=== PATIENT | female | born 2005 | race Caucasian/White ===

== ENCOUNTER 2024-07-13 19:48 | Emergency (ER) | payer BC, SELFPAY ==
[2024-07-13 19:55] VITALS: BP 122/74; PULSE 90; RESP 16; TEMP 38.2; O2SAT 96
[2024-07-13 20:02] VITALS: BP 116/76; PULSE 104; RESP 16; TEMP 38.2; O2SAT 96; BMI 20.8
--- NOTE | 2024-07-13 20:32 | CRLHL7_ITS ---
For Patients: As a result of the Cures Act, medical imaging exams and procedure reports are released immediately into your electronic medical record. You may view this report before your referring provider. If you have questions, please contact your health care provider. INDICATION: Fever TECHNIQUE: Chest 2 views. COMPARISON: None. FINDINGS: Cardiovascular and mediastinum: Heart size is normal. Unremarkable mediastinum. Lungs and pleural spaces: Lungs are clear. No sign of infiltrate or mass. No sign of pleural effusion. No pneumothorax. Bones and soft tissues: No significant findings. IMPRESSION: No acute cardiopulmonary process. Dictated by Artie Dhillon MD @ 07/13/2024 8:54:15 PM (Electronically Signed)
--- NOTE | 2024-07-13 20:50 | ED.FEVER ---
HPI - Fever General Time Seen by Provider: 20:50 Date Seen: 07/13/24 Chief Complaint: Fever Stated Complaint: Fever Time Seen by Provider: 07/13/24 20:50 Source: patient, RN notes reviewed and old records reviewed Mode of arrival: ambulatory Limitations: no limitations History of Present Illness HPI Narrative: 19 y/o female who presents today with fever. Related Data Home Medications ?Medication ?Instructions ?Recorded ?Confirmed No Known Home Medications 07/13/24 07/13/24 Allergies Allergy/AdvReac Type Severity Reaction Status Date / Time No Known Drug Allergies Allergy Verified 07/13/24 20:05 [facility] Medical History (Updated 07/13/24 @ 21:56 by Paul Lehman MD) No significant past medical history Surgical History (Updated 07/13/24 @ 20:57 by Giles Vasquez RN) No significant past surgical history Social History Smoking Status: Never smoker Second hand tobacco smoke exposure: No How often do you have a drink containing alcohol: never AUDIT-C Alcohol total score: 0 Non-prescribed substance use: denies use Exam Const Vital Signs, click to edit/add: Vital Signs - 24 hr 07/13/24 19:55 07/13/24 20:02 07/13/24 21:46 Temperature 100.8 F H 100.8 F H 100.8 F H Pulse Rate [Pulse Oximeter] 104 H Pulse Rate [Right Pulse Oximeter] 90 Respiratory Rate 16 16 Blood Pressure [Left Arm] 122/74 Blood Pressure [Right Upper Arm] 116/76 Pulse Oximetry 96 96 Oxygen Delivery Method Room Air Room Air Course Course ED Course: reviewed most recent primary care visit from February 2024 which was a routine physical with no specific concerns, patient on oral contraceptives. Chest xray independently interpreted by me negative for acute findings. Patient reports two days of fever. Mild headache, no throat pain, no runny nose or cough, no nausea or vomiting, no abdominal pain or urinary symptoms. On exam, patient is febrile but otherwise stable. No abdominal tenderness, no oropharyngeal erythema, no rash, no wheezes or crackles, no rash, no nuchal rigidity. Labs ordered along with Tylenol. Patient has been taking ibuprofen 200mg for fever, we discussed that this is subtherapeutic dosing and may be contributing to why her fever persists. Reevaluation(s) Time of Reevaluation #1: 21:53 Reevaluation #1: Labs independently interpreted by me with leukopenia, mild thrombocytopenia, normal BMP. This is most consistent with viral process, respiratory swabs negative. Continue symptom treatment, follow-up with PCP in 1 week if nto better. Vital Signs Vital signs: Initial Vital Signs Temperature 100.8 F H 07/13/24 19:55 Temperature Source Temporal Artery Scan 07/13/24 19:55 Pulse Rate 90 07/13/24 19:55 Respiratory Rate 16 07/13/24 19:55 Respiratory Effort Normal, Spontaneous, Non-Labored 07/13/24 19:55 Respiratory Depth Normal 07/13/24 19:55 Blood Pressure 122/74 07/13/24 19:55 Blood Pressure Mean 90 07/13/24 19:55 Blood Pressure Position Sitting 07/13/24 19:55 Pulse Oximetry 96 07/13/24 19:55 Oxygen Delivery Method Room Air 07/13/24 19:55 Sepsis Recent Fever Within 48 Hours Yes 07/13/24 19:55 Sepsis New/Unexplained Change in Mental Status No 07/13/24 19:55 Sepsis Action Taken by Nursing No Action Required 07/13/24 19:55 Vital Signs Temperature 100.8 F H 07/13/24 19:55 Pulse Rate 90 07/13/24 19:55 Respiratory Rate 16 07/13/24 19:55 Blood Pressure 122/74 07/13/24 19:55 Pulse Oximetry 96 07/13/24 19:55 Oxygen Delivery Method Room Air 07/13/24 19:55 Temperature 100.8 F H 07/13/24 21:46 Pulse Rate 104 H 07/13/24 20:02 Respiratory Rate 16 07/13/24 20:02 Blood Pressure 116/76 07/13/24 20:02 Pulse Oximetry 96 07/13/24 20:02 Oxygen Delivery Method Room Air 07/13/24 20:02 Medications Administered Medications: Generic Name Dose Route Start Last Admin Trade Name Freq PRN Reason Stop Dose Admin Acetaminophen 1,000 mg 07/13/24 21:43 07/13/24 21:46 Acetaminophen 500 Mg Tablet PO 07/13/24 21:44 1,000 mg ONCE ONE Administration MDM - Fever Lab Data Labs: Lab Results 07/13/24 07/13/24 Range/Units 19:55 21:15 WBC 2.92 L (4.50-11.00) K/uL RBC 4.73 (4.00-5.20) m/uL Hgb 12.4 (12.0-16.0) gm/dL Hct 39.7 (33.0-51.0) % MCV 84 (80-100) fL MCH 26 (26-34) pg MCHC 31 L (32-36) gm/dL RDW Coeff of Lj 15.0 (11.5-15.5) % Plt Count 131 L (140-440) K/uL Neut % (Auto) 78.2 H (42.0-72.0) % Lymph % (Auto) 11.6 L (20-44) % [place] % (Auto) 9.9 (0.0-11.0) % Eos % (Auto) 0.0 (0.0-7.0) % Baso % (Auto) 0.3 (0.0-3.0) % Neut # (Auto) 2.30 (1.7-7.0) K/uL Lymph # (Auto) 0.30 L (0.90-2.90) K/uL [place] # (Auto) 0.30 (0.00-0.90) K/UL Eos # (Auto) 0.00 (0.00-0.50) K/uL Baso # (Auto) 0.00 (0.00-0.30) K/uL Abs Immat Gran (auto) 0.00 (0.00-0.30) K/uL Imm/Tot Granulo (auto) 0.0 % Sodium 137 (135-149) mmol/L Potassium 3.6 (3.6-5.1) mmol/L Chloride 103 (96-114) mmol/L Carbon Dioxide 20 (20-32) mmol/L Anion Gap 14 (7-15) mEq/L BUN 11 (5-24) mg/dL Creatinine 0.8 (0.5-1.5) mg/dL Estimated Creat Clear 115.50 Estimated GFR 107 ml/min Glucose 92 (60-115) mg/dL Calcium 9.5 (8.4-10.6) mg/dL SARS-CoV-2 (PCR) Negative SARS-CoV-2 (Negative) Influenza Type A (PCR) Negative PCR FLU A (Negative) Influenza Type B (PCR) Negative PCR FLU B (Negative) RSV (PCR) Negative PCR RSV (Negative) Discharge Plan Discharge Clinical Impression: Fever in adult Patient Disposition: Home, Self-Care Condition: Stable Instructions: Fever in Adults (ED) Additional Instructions: Take Tylenol 1000mg and ibuprofen 600mg as needed for fever Lots of fluids and rest Follow-up with primary care in 1 week if not improved Activity Level: Activity as Tolerated Discharge Diet: Regular Prescriptions: No Action No Known Home Medications Stand Alone Forms: MyHealth Info Instructions
[2024-07-13 21:05] LABS: PCR FLU A Negative PCR FLU A (Negative); PCR FLU B Negative PCR FLU B (Negative); PCR RSV Negative PCR RSV (Negative); SARS PCR* Negative SARS-CoV-2 (Negative)
[2024-07-13 21:30] LABS: Basophils Percent Auto 0.3 % (0.0-3.0); Hematocrit* 39.7 % (33.0-51.0); Hemoglobin* 12.4 gm/dL (12.0-16.0); Lymphocytes Percent Auto 11.6 % (20-44); Mean Corpuscular HGB Conc 31 gm/dL (32-36); Mean Corpuscular Hemoglobin 26 pg (26-34); Mean Corpuscular Volume 84 fL (80-100); Monocytes Percent Auto 9.9 % (0.0-11.0); Neutrophils Percent Auto 78.2 % (42.0-72.0); Platelet Count* 131 K/uL (140-440); Red Blood Count* 4.73 m/uL (4.00-5.20); White Blood Count* 2.92 K/uL (4.50-11.00)
[2024-07-13 21:35] LABS: Slide Review Reflex No
[2024-07-13 21:45] LABS: Chloride* 103 mmol/L (96-114)
[2024-07-13 21:46] VITALS: TEMP 38.2
[2024-07-13 21:46] LABS: Potassium* 3.6 mmol/L (3.6-5.1); Sodium* 137 mmol/L (135-149)
[2024-07-13] MEDS: ACETAMINOPHEN 500 MG TABLET 1000 MG PO (21:46)
[2024-07-13 21:48] LABS: Blood Urea Nitrogen* 11 mg/dL (5-24); Creatinine* 0.8 mg/dL (0.5-1.5); Estimated Glomerular Filt Rate 107 ml/min
[2024-07-13 21:49] LABS: Anion Gap 14 mEq/L (7-15); Calcium* 9.5 mg/dL (8.4-10.6); Carbon Dioxide* 20 mmol/L (20-32); Glucose* 92 mg/dL (60-115)
[2024-07-13 22:03] VITALS: BP 112/74; PULSE 90; RESP 16; TEMP 37.6; O2SAT 96
--- OUTSIDE RECORDS SUMMARY | 2024-07-13 22:10 | XMS_ITS | Encounter Summary ---
Author Organization [facility] [facility] Address [address] [place] [address] Care Team Providers Care Integration Technician Name Role Phone Aden Gaxiola MD Primary Care Provider [phone] Marlee Dsouza ELECTRIC MOTOR MECHANIC, PMHNP- Unavailable Unav ailable Annetta Loyola DNP,ELECTRIC MOTOR MECHANIC,CRISIS INTERVENTION COUNSELOR Primary Care Prov ider Encounter Details Date Type Department Care Team (Late st Contact Info) Description 03/30/2017 Historical Conversion [facility] [address], [place] [address] Franchesca Cherry, CNM,CRISIS INTERVENTION COUNSELOR [address] [place] [address] Social History Tobacco Use Types Packs/Day Years Used Date Smoking Tobacco: Never Assessed Comments Unknown Sex and Gender Information Value Date Recorded Sex Assigned at Not on file Legal Sex Female 9:01 AM CDT Gender Identity Not on file Sexual Orientation Not on file documented as of this encounter Last Filed Vital Signs Vital Sign Reading Time Taken Comments Blood Pressure 98/62 03/30/2017 4:43 PM SITE SAFETY COORDINATOR Pulse - - Temperature - - Respiratory Rate - - Oxygen Saturation - - Inhaled Oxygen Concentration - - Weight 56.2 kg (123 lb 14.4 oz) 03/30/2017 4:43 PM SITE SAFETY COORDINATOR Height - - Body Mass Index - - documented in this encounter Plan of Treatment Not on file documented as of this encounter Visit Diagnoses Not on filedocumented in this encounter Additional Health Concerns Infection Onset Date Last Indicated Resolved Time COVID-19 Rule Out 12/13/2019 12/13/2019 12/13/2019 9:16 AM CDT COVID-19 Rule Out 04/08/2020 04/08/2020 04/08/2020 1:39 PM SITE SAFETY COORDINATOR documented as of this encounter Care Teams Integration Technician Relationship Specialty Start Date End Date Aden Gaxiola MD [address] [place] [address] [phone] PCP - General Family Medicine 05/27/18 07/31/22 Annetta Loyola DNP,ELECTRIC MOTOR MECHANIC,CRISIS INTERVENTION COUNSELOR [address] [place] [address] [phone] PCP - General Nurse Practitioner 08/01/22 Marlee Dsouza APRN, PMHNP-BC [address] [place] [phone] Psychiatric Provider KNOWLEDGE ARCHITECT [facility] 12/07/20 3 documented as of this encounter Additional Source Comments PLEASE NOTE: Replies to this message will not be received.[facility]
--- OUTSIDE RECORDS SUMMARY | 2024-07-13 22:10 | XMS_ITS | Encounter Summary ---
Author Organization [employer] [facility] Address [address] [place] [address] Care Team Providers Care Electrical Mechanic Name Role Phone Aden Gaxiola MD Primary Care Provider [phone]- [phone] Marlee Dsouza WOOD SCRAP HANDLER, PMHNP-BC Unavailable Unav ailable Annetta Loyola DNP,WOOD SCRAP HANDLER,WEAVER HAND Primary Care Prov ider Encounter Details Date Type Department Care Team (Late st Contact Info) Description 09/15/2016 Historical Conversion [facility] [address] [address] Annetta Loyola, MAK,WOOD SCRAP HANDLER,WEAVER HAND [address] [phone] Social History Tobacco Use Types Packs/Day Years Used Date Smoking Tobacco: Never Assessed Comments Unknown Sex and Gender Information Value Date Recorded Sex Assigned at Not on file Legal Sex Female 9:01 AM CDT Gender Identity Not on file Sexual Orientation Not on file documented as of this encounter Miscellaneous Notes * Physical Therapy Note - [facility], Genericprovider - 09/15/2016 12:00 AM CDT PHYSICAL THERAPY DISCHARGE SUMMARY PATIENT: JESUS GAXIOLA : 2005 MR #: [id number] TODAY S DATE: 09/15/16 AGE: 11 REFERRAL SOURCE: Ha Loyola, DNP, WOOD SCRAP HANDLER, WEAVER HAND, [place] DIAGNOSIS: Right knee pain ICD-10 CODE: Not tracked ONSET DATE: 06/03/16 SUBJECTIVE REPORT: Jesus is a 11-year-old female who has been seen for a total of 3 visits between the dates of 08/23/16 through 09/15/16. The patient was referred due to right knee pain. This therapist found her to have signs and symptoms consistent with flexibility deficits as well as impaired body mechanics and medial knee deviation contributing to her knee symptoms. We set forth on a plan of care to increase her knowledge and awareness of her body mechanics and the importance of correcting that through muscle activation with her various recreational activities that she likes to participate in, in cluding basketball, cross-country, track, and higher level summer training activities. At the patient's second attended session, she was having improvement in her symptoms but still some occasional s ymptoms with high level aggressive lifting activities at the local high school. The patient practiced various body mechanics with this therapist on that date and it became evident that we needed diff erent equipment to practice to the fullest capacity to identify Jesus's body mechanics, therefore we spent today's session at the local [employer]. The patient and her mother met this therapist th ere to practice body mechanics with olympic-like lifts. The patient's subjective report today includes she was able to participate in a 4-day running camp without symptoms. She has also been able to participate in lengthy [employer] cross-training activities as well as basketball practices without symptoms. The only activity that causes her occasional symptoms at this time is the jammer lifting exercise at the local high school. The patient feels she is having these symptoms because she has to quickly extend her knee. Otherwise, she has not had to use her base and feels very confid ent about the level of her symptoms at this time. Patient also arrived today wearing new Pegasus tennis shoes that she reports feel like good shoes for her to use in the upcoming school year. OBJECTIVE: Today, after a brief warm-up with Jesus on an exercise bike, we practiced Olympic lift hang clean. We started first with practicing high poles and power ups with use of the bar, practicing the upper trap muscle activation as well as keeping the bar close to the body and letting go. We also practicing the quick and powerful explosion through the lower extremities and practiced body mechanics, as eJsus does have a tendency toward a posterior pelvic tilt and loss of heel contact with the floor. Following this, we did practice the entire full lift of the hang clean. During this time, we practiced keeping the bar close to the body, high elbow pull, upper trap muscle activation, and snatching under quickly. The greatest deficit that Jesus demonstrated was lack of speed with the movement. We also practiced hand positioning with shoulders elevated to 90 and elbows extended out from body and letting go with her hands to assume a more appropriate postur e through her torso and upper extremities. Jesus did quite well with practicing these exercises today and I strongly encouraged her to keep an eye on those different components of the exercise going forward into the future to help her continue to solidify her form with this very aggressive and demanding exercise. We also practiced the jammer exercise again and I gave Jesus additional cues to e nsure that she's monitoring her medial knee deviation on the right. Finally, we did practice some single-leg lunges as well as side planks as Jesus continues to have deficit at the right hip abducto r muscles as compared to the left. She will work on these to assist with improving that strength deficit. ASSESSMENT: The patient is a 11-year-old female who has been seen for a total of 3 visits for right knee pain. It appears that Jesus's right knee pain is largely associated with medial knee deviation that likely will continue to be fairly chronic for her. It will be important for Jesus to monitor and handle this going forward into the future if she wants to continue her high level participation in school and recreational activities, and she does appear to be managing well at this point in time. She did benefit from the skilled services that were provide d to her, largely including patient education and body mechanics management, all of which were largely implemented with the recreational therapeutic exercise activity that she is participating in at t he local high school. GOALS: 1. The patient will have a Lower Extremity Functional Scale of >/= 76/80 to demonstrate lesser pain and greater tolerance to high level recreational activities, back to prior level of function. Current Status : Goal not met, as I did not reassess this functional scale on today's date. 2. The patient will have bilateral prone two-joint hip flexors symmetrical in nature in regard to flexibility to demonstrate lesser muscular tightness in right side quadriceps and lesser kne e joint irritation due to muscle tightness. Current Status : Goal met, as this was reassessed at her second attended session. 3. Patient will subjectively report ability to implement and observe body mechanics awareness as well as neuromuscular control, specifically on right side body mechanics with high level recreational activities to allow for participation in school sports and home recreational activities in a pain free manner. Current Status : Goal met. 4. Patient will subjectively report pain at right knee of </= 2/10 7/7 days per week with all levels of participation in activities to demonstrate improved incorporation of conservative management strategies for right knee pain. Current Status : Goal partially met. Jesus did report that she does not have pain currently and did not have pain with some of the regular activities that were causing her discomfort, though she does occasionally have pain with one lifting activity at school. PLAN: At this point in time, Jesus and her mom feel confident about her capabilities to go forward independently and feel comfortable with discharge to independence with her home exe rcise program. They were strongly encouraged to continue with the recommendations that were provided by this therapist and to contact this rehab facility if any further services are needed or desired in the future. Patient will now be discharged from this episode of care. Thank you for this referral. KARY LOVE DPT <Electronically signed by KARY Giang DPT DACLEMENTE> 09/25/16 1509 Dictated but not read 1101 1023/LESLEE documented in this encounter Plan of Treatment Not on file documented as of this encounter Visit Diagnoses Not on filedocumented in this encounter Additional Health Concerns Infection Onset Date Last Indicated Resolved Time COVID-19 Rule Out 12/13/2019 12/13/2019 12/13/2019 9:16 AM CDT COVID-19 Rule Out 04/08/2020 04/08/2020 04/08/2020 1:39 PM MEAL ROOM HAND documented as of this encounter Care Teams Electrical Mechanic Relationship Specialty Start Date End Date Aden Gaxiola MD [address] [place] [phone] PCP - General Family Medicine 05/27/18 07/31/22 Annetta Loyola, MAK,WOOD SCRAP HANDLER,WEAVER HAND [address] [phone] PCP - General Nurse Practitioner 08/01/22 Marlee Dsouza APRN, PMHNP- [address] [place] [phone] Psychiatric Provider WEBSITE ADMIN [facility] 12/07/20 3 documented as of this encounter Additional Source Comments PLEASE NOTE: Replies to this message will not be received.[facility]
--- OUTSIDE RECORDS SUMMARY | 2024-07-13 22:10 | XMS_ITS | Encounter Summary ---
Author Organization [facility] Address [address] [place] [address] Care Team Providers Care Branch Coordinator Name Role Phone Aden Gaxiola MD Primary Care Provider +1- [phone] Marlee Dsouza PROFESSOR OF FRENCH, PMHNP-BC Unavailable Unav ailable Annetta Loyola DNP,PROFESSOR OF FRENCH,AGENCY DEVELOPMENT MANAGER Primary Care Prov ider Encounter Details Date Type Department Care Team (Late st Contact Info) Description 08/23/2016 Historical Conversion [facility] [address] [address] Annetta Loyola, MAK,PROFESSOR OF FRENCH,AGENCY DEVELOPMENT MANAGER [address] [phone] Social History Tobacco Use Types Packs/Day Years Used Date Smoking Tobacco: Never Assessed Comments Unknown Sex and Gender Information Value Date Recorded Sex Assigned at Not on file Legal Sex Female 9:01 AM CDT Gender Identity Not on file Sexual Orientation Not on file documented as of this encounter Miscellaneous Notes * Physical Therapy Note - [facility], Genericprovider - 08/23/2016 12:00 AM CDT PHYSICAL THERAPY INITIAL EVALUATION PATIENT: JESUS GAXIOLA : 2005 MR #: [id number] TODAY S DATE: 08/23/16 AGE: 11 REFERRAL SOURCE: Ha Loyola, DNP, PROFESSOR OF FRENCH, AGENCY DEVELOPMENT MANAGER, N[place]O DIAGNOSIS: Right knee pain ICD-10 CODE: Not tracked ONSET DATE: 06/03/16 SUBJECTIVE REPORT: Jesus is a very pleasant 11-year-old female who is well known to this therapist from out in the community. She comes today with the support of her mother, Jacque. The patient reports t hat when she was participating in hurdling events during track season she started having right knee pain, and she landed on her right foot as she was going over the hurdles. She subsequently stopped participating in the hurdles, but her knee pain has persisted. It is very intermittent in nature but is present with certain activities, especially with stopping and starting quickly such as with [employer] run today, which she is participating in with the local [employer] fitness program. Also, there are some activities that she does in her home setting that she is unable to put a complete identifier on in regard to what provokes her symptoms, but she feels that it's only occasional certain movements and postures that cause the right knee pain. It does resolve rather quickly, but it is certainly present occasionally. She does also feel like there is a pop, but there is no audible sound. She denies any sort of incident or trauma contributing to the onset of the symptoms. The pain that is present is located on the right side at the medial knee at approximately the superior medial border of the patella and onto the knee joint line. The patient rates the pain at a lev el 5 to 6 out of 10 when it is present, but again it is not constant in nature. The patient is able to engage in her running activities such as on the treadmill. She is able to tolerate 2 miles of c ontinuous running at 8.3 miles per hour and 0% elevation with 0/10 knee pain. She has used some ice and also occasionally uses a knee brace after activity, which does provide her with relief. Otherw ise, home activities are not provocative in nature and she is not limited in home activities. She is continuing to participate in recreational activities this summer, but would like to have the knee pain investigated. She does wear Nike Pegasus shoes for running during cross country and track. Now, with [employer] activities in the summer, she is using Nike Zoom Free shoes. Her past medical history is largely unremarkable. For further details on her history, please access her EMR. OBJECTIVE: OBSERVATION - Jesus is a very pleasant young female who is extremely tall in stature and has a very long hip to floor length. Her legs are very thin and she has good muscle tone but thin in nature. She ambulates without apparent antalgia. FUNCTIONAL SCALE - Patient completes the Lower Extremity Functional Scale, scoring herself at 72/80. Higher scores indicate lesser disability. 3 LE PROM Left Right Straight leg raise 70 , negative 80 , negative Hip flexion 120 120 90/90 hamstring flexibility -25 -35 Hip external rotation >45 45 Hip internal rotation 25 25 Prone one-joint hip flexor 20 15 Prone two-joint hip flexor 110 100 Gluteals 30 45 Gastrocnemius 3 3 Soleus 0 2 MANUAL MUSCLE TESTING - Bilateral lower extremity hip flexion, knee flexion and extension, ankle dorsiflexion, and great toe extension are 5/5 muscle strength and pain fr ee. NEUROLOGICAL SCREENING - The patient denies any sort of numbness or tingling into her lower extremities. Lower extremity dermatomes are intact to light touch. Lower extremity myotomes are stron g and pain free. FURTHER OBJECTIVE MEASURES, OBSERVATIONS, AND SPECIAL TESTS - Patient has negative knee screening for bilateral meniscus deficiency as well as ACL and PCL screening. The patient a lso has negative screening for patellar mobilizations that are provocative of pain. The patient is positive to palpation at the superior medial border of the patella on the right as compared to nonte nder on the left. She is also tender at the medial hamstring on the right. Therapist appreciates a moderate to severe increase in soft tissue tension in this location as well. Patient does have imp aired balance on the right side as compared to the left. She is able to maintain her balance x 10 seconds without significant limitation, but there is increased instability and postural sway on the r ight as compared to the left, and patient feels lesser balanced on the right as compared to the left. In regard to body mechanics with squat, patient does demonstrate good body mechanics but she does tend to laterally deviate the lower extremity on the right as compared to the left and medial knee deviation is observed as she progresses with repetitions as well as increased foot pronation on the right as compared to the left. Patient does have a positive piriformis test on the right for muscle tightness. ASSESSMENT: The patient is a 11-year-old female who has signs and symptoms consistent with very likely impaired neuromuscular control at the knee joint. It is very possible that with these very high level quick changes of activities or unilateral landing activities that the neuromuscular control that is very much needed at that point in time is deficient ivelisse Laws. This would not be unreasonable, given the fact that she is quite tall in stature and her muscular tone is a little bit lower now just given her age and physique. She is certainly heading in the right direction in regard to her participation in fitness activities, especially this summer with strength training activities. I think Jesus will benefit from skilled services to increase he r knowledge and awareness in regard to neuromuscular control, specifically at the right knee and to lessen the medial knee deviation that is apparent with some of her body mechanics that are demonstra nubia today. Further, she will have to implement this independently with other high level quick activities. Jesus will benefit from recommendations in regard to the soft tissues that were identified as limited today including hamstrings, piriformis, and quadriceps and also muscular strengthening, specifically at the VMO on the right as well as hip abductors bilaterally. The patient and her mom a re made fully aware of today's objective findings and recommendations of this therapist and agreeable to the current plan. TODAY'S TREATMENT - On today's date, I did spend a lengthy amount of time visiting with Jesus and her mom in regard to the nature of the anatomical considerations of the low er extremities, the musculature that will assist with supporting the knee and controlling it, especially with quick like cutting activities. I advised Jesus on the importance of stability throughout the hip joint and body mechanics with regard to monitoring that that she can implement with her participation in the local [employer] summer activities. She will also be working on home exercise progr am recommendations including stretching of hamstrings, piriformis, and quadriceps. We practiced each of these together today as well as worked on VMO activation with her squats, body mechanics with h er squats, and hip abductor muscle strength. The patient and her mom were also advised on recommendations in regard to shoe wear and will plan on investigating that going forward. She was given a benitez ndout to work on these recommendations over the next couple weeks. GOALS: (to be met in 6 weeks) 1. The patient will have a Lower Extremity Functional Scale of >/= 76/80 to demonstrate lesser pain and greater tolerance to high level recreational activities, back to pr ior level of function. 2. The patient will have bilateral prone two-joint hip flexors symmetrical in nature in regard to flexibility to demonstrate lesser muscular tightness in right side quadriceps and lesser knee joint irritation due to muscle tightness. 3. Patient will subjectively report ability to implement and observe body mechanics awareness as well as neuromuscular control, specifically on right side body mechanics with high level recreational activities to allow for participation in school sports and home recreational activities in a pain free manner. 4. Patient will subjectively report pain at right knee of </= 2/10 7/7 days per week with all levels of participation in activities to demonstrate improved incorporation of conservative management strategies for right knee pain. PLAN: I will plan to see Jesus within a 2-week time period and follow up as needed with regard to her symptoms. The patient will benefit from skilled services to include patient education, behavior modification strategies in regard to body mechanics and incorporation of neuromuscular control with recreational fitness activities, progressive therapeutic exercise and ac tivity, and manual therapy and modalities, if needed. Thank you for this referral. KARY LOVE DPT <Electronically signed by KARY LOVE> 08/24/16 1643 Dictated but not read 1645 [id number] Electronically signed by Annetta Loyola, MAK,PROFESSOR OF FRENCH,AGENCY DEVELOPMENT MANAGER at 12/02/2018 4:55 PM CDT documented in this encounter Plan of Treatment Not on file documented as of this encounter Visit Diagnoses Not on filedocumented in this encounter Additional Health Concerns Infection Onset Date Last Indicated Resolved Time COVID-19 Rule Out 12/13/2019 12/13/2019 12/13/2019 9:16 AM CDT COVID-19 Rule Out 04/08/2020 04/08/2020 04/08/2020 1:39 PM MULTIPLE LAUNCH ROCKET SYSTEM CREWMEMBER documented as of this encounter Care Teams Branch Coordinator Relationship Specialty Start Date End Date Aden Gaxiola MD [address] [place] [phone] PCP - General Family Medicine 05/27/18 07/31/22 Annetta Loyola, MAK,PROFESSOR OF FRENCH,AGENCY DEVELOPMENT MANAGER [address] [phone] PCP - General Nurse Practitioner 08/01/22 Marlee Dsouza APRN, PMHNP- [address] [phone] Psychiatric Provider STRUCTURES ENGINEER Psych-Mental [facility] 12/07/20 3 documented as of this encounter Additional Source Comments PLEASE NOTE: Replies to this message will not be received.[facility] and [facility]
--- OUTSIDE RECORDS SUMMARY | 2024-07-13 22:10 | XMS_ITS | Encounter Summary ---
Author Organization [facility] Address [address] [place] [address] Care Team Providers Care Extrusion Process Operator Name Role Phone Aden Gaxiola MD Primary Care Provider [phone]- [phone] Marlee Dsouza CENTRAL CONTROL ROOM OPERATOR, PMHNP-BC Unavailable Unav ailable Annetta Loyola DNP,CENTRAL CONTROL ROOM OPERATOR,TRANSITIONAL STUDIES INSTRUCTOR Primary Care Prov ider Encounter Details Date Type Department Care Team (Late st Contact Info) Description 12/23/2015 Historical Conversion [facility] [address], [place] [address] Chantal Patricio MD Social History Tobacco Use Types Packs/Day Years Used Date Smoking Tobacco: Never Assessed Comments Unknown Sex and Gender Information Value Date Recorded Sex Assigned at Not on file Legal Sex Female 9:01 AM CDT Gender Identity Not on file Sexual Orientation Not on file documented as of this encounter Last Filed Vital Signs Vital Sign Reading Time Taken Comments Blood Pressure - - Pulse - - Temperature - - Respiratory Rate - - Oxygen Saturation - - Inhaled Oxygen Concentration - - Weight 49.9 kg (110 lb) 12/23/2015 10:58 AM CDT Height - - Body Mass Index - - documented in this encounter Plan of Treatment Not on file documented as of this encounter Visit Diagnoses Not on filedocumented in this encounter Additional Health Concerns Infection Onset Date Last Indicated Resolved Time COVID-19 Rule Out 12/13/2019 12/13/2019 12/13/2019 9:16 AM CDT COVID-19 Rule Out 04/08/2020 04/08/2020 04/08/2020 1:39 PM SUPPLY CHAIN COORDINATOR documented as of this encounter Care Teams Extrusion Process Operator Relationship Specialty Start Date End Date Aden Gaxiola MD [address] [place] [phone] PCP - General Family Medicine 05/27/18 07/31/22 Annetta Loyola, DNP,CENTRAL CONTROL ROOM OPERATOR,TRANSITIONAL STUDIES INSTRUCTOR [address] [place] [phone] PCP - General Nurse Practitioner 08/01/22 Marlee Dsouza, SHELLY, PMHNP-BC [address] [place] [phone] Psychiatric Provider FREE LANCE ARTIST Psych-Mental [facility] 12/07/20 3 documented as of this encounter Additional Source Comments PLEASE NOTE: Replies to this message will not be received.[facility] and [facility]
--- OUTSIDE RECORDS SUMMARY | 2024-07-13 22:10 | XMS_ITS | Encounter Summary ---
Author Organization [facility] Address [address] [place] [address] Care Team Providers Care Violent Crimes Detective Name Role Phone Aden Gaxiola MD Primary Care Provider [phone]- [phone] Marlee Dsouza INFORMATICS CONSULTANT, PMHNP-BC Unavailable Unav ailable Annetta Loyola DNP,INFORMATICS CONSULTANT,DELIVERY LEAD Primary Care Prov ider Encounter Details Date Type Department Care Team (Late st Contact Info) Description 08/14/2016 Historical Conversion [facility] [address] [phone] Annetta Loyola, DNP,INFORMATICS CONSULTANT,DELIVERY LEAD [address] [phone] Social History Tobacco Use Types Packs/Day Years Used Date Smoking Tobacco: Never Assessed Comments Unknown Sex and Gender Information Value Date Recorded Sex Assigned at Not on file Legal Sex Female 9:01 AM CDT Gender Identity Not on file Sexual Orientation Not on file documented as of this encounter Last Filed Vital Signs Vital Sign Reading Time Taken Comments Blood Pressure 90/62 08/14/2016 9:21 AM CDT Pulse - - Temperature - - Respiratory Rate - - Oxygen Saturation - - Inhaled Oxygen Concentration - - Weight 53.4 kg (117 lb 11.6 oz) 08/14/2016 9:21 AM CDT Height - - Body Mass Index - - documented in this encounter Plan of Treatment Not on file documented as of this encounter Visit Diagnoses Not on filedocumented in this encounter Additional Health Concerns Infection Onset Date Last Indicated Resolved Time COVID-19 Rule Out 12/13/2019 12/13/2019 12/13/2019 9:16 AM CDT COVID-19 Rule Out 04/08/2020 04/08/2020 04/08/2020 1:39 PM DIESEL TECHNICIAN documented as of this encounter Care Teams Violent Crimes Detective Relationship Specialty Start Date End Date Aden Gaxiola MD [address] [place] [phone] PCP - General Family Medicine 05/27/18 07/31/22 Annetta Loyola, MAK,INFORMATICS CONSULTANT,DELIVERY LEAD [address] [place] [phone] PCP - General Nurse Practitioner 08/01/22 Marlee Dsouza, INFORMATICS CONSULTANT, PMHNP-BC [address] [place] [phone] Psychiatric Provider EXIT BOOTH AGENT Psych-Mental th 12/07/20 3 documented as of this encounter Additional Source Comments PLEASE NOTE: Replies to this message will not be received.[facility] and [facility]
--- OUTSIDE RECORDS SUMMARY | 2024-07-13 22:10 | XMS_ITS | Encounter Summary ---
Author Organization [email or web address] Address [address] [place] [address] Care Team Providers Care Fitness Manager Name Role Phone Aden Gaxiola MD Primary Care Provider [phone]- [phone] Marlee Dsouza GAME OPERATOR, PMHNP-BC Unavailable Unav ailable Annetta Loyola DNP,GAME OPERATOR,ENGINEER STEAM Primary Care Prov ider Encounter Details Date Type Department Care Team (Late st Contact Info) Description 09/14/2015 Historical Conversion [facility] [address] [phone] Annetta Loyola, DNP,GAME OPERATOR,ENGINEER STEAM [address] [phone] Social History Tobacco Use Types Packs/Day Years Used Date Smoking Tobacco: Never Assessed Comments Unknown Sex and Gender Information Value Date Recorded Sex Assigned at Not on file Legal Sex Female 9:01 AM CDT Gender Identity Not on file Sexual Orientation Not on file documented as of this encounter Last Filed Vital Signs Vital Sign Reading Time Taken Comments Blood Pressure 90/62 09/14/2015 8:38 AM CDT Pulse - - Temperature - - Respiratory Rate - - Oxygen Saturation - - Inhaled Oxygen Concentration - - Weight 47.6 kg (104 lb 15 oz) 09/14/2015 8:38 AM CDT Height 170.2 cm (5' 7) 09/14/2015 8:38 AM CDT Body Mass Index 16.44 09/14/2015 8:38 AM CDT Body Mass Index Percentile 18.82% 09/14/2015 8:3 8 AM CDT Growth Chart: [facility] [place] (Girls, 2- 20 Years) documented in this encounter Plan of Treatment Not on file documented as of this encounter Visit Diagnoses Not on filedocumented in this encounter Additional Health Concerns Infection Onset Date Last Indicated Resolved Time COVID-19 Rule Out 12/13/2019 12/13/2019 12/13/2019 9:16 AM CDT COVID-19 Rule Out 04/08/2020 04/08/2020 04/08/2020 1:39 PM SURVEY SUPERINTENDENT documented as of this encounter Care Teams Fitness Manager Relationship Specialty Start Date End Date Aden Gaxiola MD [address] [place] [phone] PCP - General Family Medicine 05/27/18 07/31/22 Annetta Loyola, DNP,GAME OPERATOR,ENGINEER STEAM [address] [place] [phone] PCP - General Nurse Practitioner 08/01/22 Marlee Dsouza, SHELLY, PMHNP-BC [address] [place] [phone] Psychiatric Provider SILVICULTURE FORESTER [facility] 12/07/20 3 documented as of this encounter Additional Source Comments PLEASE NOTE: Replies to this message will not be received.[facility]
--- OUTSIDE RECORDS SUMMARY | 2024-07-13 22:10 | XMS_ITS | Encounter Summary ---
Author Organization [facility] Address [address] [place] [address] Care Team Providers Care Oil Field Equipment Mechanic Supervisor Name Role Phone Aden Gaxiola MD Primary Care Provider [phone]- [phone] Marlee Dsouza BINDING CUTTER, PMHNP-BC Unavailable Unav ailable Annetta Loyola DNP,BINDING CUTTER,REFERENCE LIBRARY ASSISTANT Primary Care Prov ider Encounter Details Date Type Department Care Team (Late st Contact Info) Description 11/23/2016 Historical Conversion [facility] [address] [phone] Annetta Loyola, DNP,BINDING CUTTER,REFERENCE LIBRARY ASSISTANT [address] [phone] Social History Tobacco Use Types Packs/Day Years [...] - Inhaled Oxygen Concentration - - Weight 57.4 kg (126 lb 8.7 oz) 11/23/2016 8:34 A M CDT Height - - Body Mass Index - - documented in this encounter Plan of Treatment Not on file documented as of this encounter Visit Diagnoses Not on filedocumented in this encounter Additional Health Concerns Infection Onset Date Last Indicated Resolved Time COVID-19 Rule Out 12/13/2019 12/13/2019 12/13/2019 9:16 AM CDT COVID-19 Rule Out 04/08/2020 04/08/2020 04/08/2020 1:39 PM SUPERVISOR HOUSECLEANER documented as of this encounter Care Teams Oil Field Equipment Mechanic Supervisor Relationship Specialty Start Date End Date Aden Gaxiola MD [address] [place] [phone] PCP - General Family Medicine 05/27/18 07/31/22 Annetta Loyola, MAK,BINDING CUTTER,REFERENCE LIBRARY ASSISTANT [address] [place] [phone] PCP - General Nurse Practitioner 08/01/22 Marlee Dsouza APRN, PMHNP-BC [address] [place] [phone] Psychiatric Provider SLIVER CHOPPER [facility] 12/07/20 3 documented as of this encounter Additional Source Comments PLEASE NOTE: Replies to this message will not be received.[facility] and [facility]
--- OUTSIDE RECORDS SUMMARY | 2024-07-13 22:11 | XMS_ITS | Encounter Summary ---
Author Organization [facility] Address [address] [place] [address] Care Team Providers Care Design Technology Professor Name Role Phone Aden Gaxiola MD Primary Care Provider +1- [phone] Marlee Dsouza CONFLICT RESOLUTION PROFESSIONAL, PMHNP-BC Unavailable Unav ailable Annetta Loyola DNP,CONFLICT RESOLUTION PROFESSIONAL,SMALL BUSINESS SALES REPRESENTATIVE Primary Care Prov ider Encounter Details Date Type Department Care Team (Late st Contact Info) Description 07/12/2015 Historical Conversion [facility] [address] [phone] Annetta Loyola, DNP,CONFLICT RESOLUTION PROFESSIONAL,SMALL BUSINESS SALES REPRESENTATIVE [address] [phone] Social History Tobacco Use Types Packs/Day Years Used Date Smoking Tobacco: Never Assessed Comments Unknown Sex and Gender Information Value Date Recorded Sex Assigned at Not on file Legal Sex Female 9:01 AM CDT Gender Identity Not on file Sexual Orientation Not on file documented as of this encounter Last Filed Vital Signs Vital Sign Reading Time Taken Comments Blood Pressure 110/68 07/12/2015 4:50 PM CDT Pulse - - Temperature - - Respiratory Rate - - Oxygen Saturation - - Inhaled Oxygen Concentration - - Weight 48.4 kg (106 lb 11.2 oz) 07/12/2015 4:50 PM CDT Height - - Body Mass Index - - documented in this encounter Plan of Treatment Not on file documented as of this encounter Visit Diagnoses Not on filedocumented in this encounter Additional Health Concerns Infection Onset Date Last Indicated Resolved Time COVID-19 Rule Out 12/13/2019 12/13/2019 12/13/2019 9:16 AM CDT COVID-19 Rule Out 04/08/2020 04/08/2020 04/08/2020 1:39 PM SPORTS ANNOUNCER documented as of this encounter Care Teams Design Technology Professor Relationship Specialty Start Date End Date Aden Gaxiola MD [address] [place] [phone] PCP - General Family Medicine 05/27/18 07/31/22 Annetta Loyola, MAK,CONFLICT RESOLUTION PROFESSIONAL,SMALL BUSINESS SALES REPRESENTATIVE [address] [place] [phone] PCP - General Nurse Practitioner 08/01/22 Marlee Dsouza, CONFLICT RESOLUTION PROFESSIONAL, PMHNP-BC [address] [place] [phone] Psychiatric Provider MIME ARTIST Psych-Mental th 12/07/20 3 documented as of this encounter Additional Source Comments PLEASE NOTE: Replies to this message will not be received.[facility] and [facility]
--- OUTSIDE RECORDS SUMMARY | 2024-07-13 22:11 | XMS_ITS | Encounter Summary ---
Author Organization [employer] [facility] Address [address] [place] [address] Care Team Providers Care Outside Cutter Hand Name Role Phone Aden Gaxiola MD Primary Care Provider +1- [phone] Marlee Dsouza FISHING MANAGER, PMHNP-BC Unavailable Unav ailable Annetta Loyola DNP,FISHING MANAGER,CHIEF OPERATOR REFORMER Primary Care Prov ider Encounter Details Date Type Department Care Team (Late st Contact Info) Description 08/29/2013 Historical Conversion [facility] [address] [phone] Annetta Loyola, DNP,FISHING MANAGER,CHIEF OPERATOR REFORMER [address] [phone] Social History Tobacco Use Types Packs/Day Years Used Date Smoking Tobacco: Never Assessed Comments Unknown Sex and Gender Information Value Date Recorded Sex Assigned at Not on file Legal Sex Female 9:01 AM CDT Gender Identity Not on file Sexual Orientation Not on file documented as of this encounter Last Filed Vital Signs Vital Sign Reading Time Taken Comments Blood Pressure 88/62 08/29/2013 8:47 AM CDT Pulse - - Temperature - - Respiratory Rate - - Oxygen Saturation - - Inhaled Oxygen Concentration - - Weight 35.4 kg (78 lb 2 oz) 08/29/2013 8:47 AM C DT Height - - Body Mass Index - - documented in this encounter Plan of Treatment Not on file documented as of this encounter Visit Diagnoses Not on filedocumented in this encounter Additional Health Concerns Infection Onset Date Last Indicated Resolved Time COVID-19 Rule Out 12/13/2019 12/13/2019 12/13/2019 9:16 AM CDT COVID-19 Rule Out 04/08/2020 04/08/2020 04/08/2020 1:39 PM ACCOUNTING PROFESSIONAL documented as of this encounter Care Teams Outside Cutter Hand Relationship Specialty Start Date End Date Aden Gaxiola MD [address] [place] [phone] PCP - General Family Medicine 05/27/18 07/31/22 Annetta Loyola, MAK,FISHING MANAGER,CHIEF OPERATOR REFORMER [address] [phone] PCP - General Nurse Practitioner 08/01/22 Marlee Dsouza, FISHING MANAGER, PMHNP-BC [address] [place] [phone] Psychiatric Provider [facility] 12/07/20 3 documented as of this encounter Additional Source Comments PLEASE NOTE: Replies to this message will not be received.[facility] and [facility]
--- OUTSIDE RECORDS SUMMARY | 2024-07-13 22:11 | XMS_ITS | Encounter Summary ---
Author Organization [email or web address] [facility] Address [address] [place] [address] Care Team Providers Care Retail Buyer Name Role Phone Aden Gaxiola MD Primary Care Provider [phone]- [phone] Marlee Dsouza MASTER CONTROL OPERATOR, PMHNP-BC Unavailable Unav ailable Dariana Saldaña DNP,MASTER CONTROL OPERATOR,BAG WASHER Primary Care Prov ider Encounter Details Date Type Department Care Team (Late st Contact Info) Description 05/18/2018 Historical Conversion [facility] [address] [address] Srikanth Lundberg MD [address] [place] [phone] Social History Tobacco Use Types Packs/Day Years Used Date Smoking Tobacco: Never Assessed Comments Unknown Sex and Gender Information Value Date Recorded Sex Assigned at Not on file Legal Sex Female 9:01 AM CDT Gender Identity Not on file Sexual Orientation Not on file documented as of this encounter ED Notes * Srikanth Lundberg MD - 05/18/2018 12:00 AM CDT [facility] [address] [address] Urgent Care Report Signed PATIENT NAME: JESUS GAXIOLA MR #: [id number] : 2005 ACCT: [id number] ATTENDING: SRIKANTH LUNDBERG MD PRIMARY: DARIANA SALDAÑA, DNP BAG WASHER NUNO Admission Information Patient Admission Data Date of Service: May 18, 2018 Chief Complaint Chief Complaint: sore throat History of Present Illness History of Present Illness 13-year-old female presents with sore throat that started this morning. No fever, no cough. She has mild rhinorrhea. She has tender cervical lymphadenopathy. She is leaving to go on a school trip this morning and her parents wanted her checked for strep as this may change her plans. Strep screen was drawn. Allergies Allergies: Coded Allergies: No Known Allergies (Verified Allergy, Unknown, 03/30/17) Vital Signs Temperature (Fahrenheit): 98.0 Temperature (Calculated Celsiu: 36.78417 Temperature Source: Oral Pulse Rate (adult): 65 Respiratory Rate: 18 O2 Sat by Pulse Oximetry: 99 Oxygen Delivery Method: Room Air Blood Pressure Systolic: 122 Blood Pressure Diastolic: 69 Blood Pressure Mean: 86 Physical Exam Details Gen: NAD HEENT: NCAT, TMs clear bilaterally, clear sclera, erythematous pharynx and tonsils but no significant edema and no white exudate, MMM, clear sclera Neck: tender anterior cervical nodes bilaterally Heart: RRR, no mgr Lungs: CTAB, no rw Diagnostic Studies Diagnostic Studies Laboratory Laboratory Tests Test 05/18/18 08:50 Assessment and Plan Assessment and Plan Problems: (1) Acute pharyngitis Plan -Strep screen negative, etiology likely viral -No antibiotics indicated -Encourage cough drops, Tylenol, Motrin warm/cool liquids -Follow-up in clinic as needed if she has any worsening symptoms -Strep culture sent Total time spent with patient: 15 SRIKANTH LUNDBERG MD May 18, 2018 09:06 Authored By: SRIKANTH LUNDBERG MD 05/18/18 0906 <Electronically signed by SRIKANTH LUNDBERG MD> 05/18/18 0920 Other Signing Provider: documented in this encounter Plan of Treatment Not on file documented as of this encounter Visit Diagnoses Not on filedocumented in this encounter Additional Health Concerns Infection Onset Date Last Indicated Resolved Time COVID-19 Rule Out 12/13/2019 12/13/2019 12/13/2019 9:16 AM CDT COVID-19 Rule Out 04/08/2020 04/08/2020 04/08/2020 1:39 PM INSURANCE HEALTHCARE CONSULTANT documented as of this encounter Care Teams Retail Buyer Relationship Specialty Start Date End Date Aden Gaxiola MD [address] [place] [phone] PCP - General Family Medicine 05/27/18 07/31/22 Dariana Saldaña, MAK,MASTER CONTROL OPERATOR,BAG WASHER [address] [place] [phone] PCP - General Nurse Practitioner 08/01/22 Marlee Dsouza, SHELLY, PMHNP-BC [address] [place] [phone] Psychiatric Provider CRIME LABORATORY ANALYST [facility] 12/07/20 3 documented as of this encounter Additional Source Comments PLEASE NOTE: Replies to this message will not be received.[facility] and [facility]
--- OUTSIDE RECORDS SUMMARY | 2024-07-13 22:11 | XMS_ITS | Encounter Summary ---
Author Organization [employer] [facility] Address [address] [place] [address] Care Team Providers Care Child Welfare Manager Name Role Phone Aden Gaxiola MD Primary Care Provider +1- [phone] Marlee Dsouza SPOTTER, PMHNP-BC Unavailable Unav ailable Annetta Loyola DNP,SPOTTER,INTENSIVE CARE SPECIALIST Primary Care Prov ider Encounter Details Date Type Department Care Team (Late st Contact Info) Description 10/03/2018 Historical Conversion [facility] [address], [place] [address] [facility], Genericprovider Social History Tobacco Use Types Packs/Day Years Used Date Smoking Tobacco: Never Assessed Comments Unknown Sex and Gender Information Value Date Recorded Sex Assigned at Not on file Legal Sex Female 9:01 AM CDT Gender Identity Not on file Sexual Orientation Not on file documented as of this encounter Last Filed Vital Signs Vital Sign Reading Time Taken Comments Blood Pressure 98/60 10/03/2018 2:34 PM CDT Pulse - - Temperature - - Respiratory Rate - - Oxygen Saturation - - Inhaled Oxygen Concentration - - Weight 57.7 kg (127 lb 3.3 oz) 10/03/2018 2:34 P M CDT Height - - Body Mass Index - - documented in this encounter Plan of Treatment Not on file documented as of this encounter Visit Diagnoses Not on filedocumented in this encounter Additional Health Concerns Infection Onset Date Last Indicated Resolved Time COVID-19 Rule Out 12/13/2019 12/13/2019 12/13/2019 9:16 AM CDT COVID-19 Rule Out 04/08/2020 04/08/2020 04/08/2020 1:39 PM SEGREGATOR documented as of this encounter Care Teams Child Welfare Manager Relationship Specialty Start Date End Date Aden Gaxiola MD [address] [phone] PCP - General Family Medicine 05/27/18 07/31/22 Annetta Loyola, DNP,SPOTTER,INTENSIVE CARE SPECIALIST [address] [place] [phone] PCP - General Nurse Practitioner 08/01/22 Marlee Dsouza, SPOTTER, PMHNP-BC [address] [place] [phone] Psychiatric Provider BONE GLUE MAKER [facility] 12/07/20 3 documented as of this encounter Additional Source Comments PLEASE NOTE: Replies to this message will not be received.[facility]
--- OUTSIDE RECORDS SUMMARY | 2024-07-13 22:11 | XMS_ITS | Encounter Summary ---
Author Organization [employer] [facility] Address [address] [place] [address] Care Team Providers Care Funeral Home Location Manager Name Role Phone Aden Gaxiola MD Primary Care Provider +1- [phone] Marlee Dsouza MINING PROFESSIONALS, PMHNP- Unavailable Unav ailable Dariana Saldaña DNP,MINING PROFESSIONALS,FOURDRINIER OPERATOR Primary Care Prov ider Encounter Details Date Type Department Care Team (Late st Contact Info) Description 10/03/2018 Historical Conversion [facility] [address] [address] Dariana Saldaña, MAK,MINING PROFESSIONALS,FOURDRINIER OPERATOR [address] [phone] Social History Tobacco Use Types Packs/Day Years Used Date Smoking Tobacco: Never Assessed Comments Unknown Sex and Gender Information Value Date Recorded Sex Assigned at Not on file Legal Sex Female 9:01 AM CDT Gender Identity Not on file Sexual Orientation Not on file documented as of this encounter Progress Notes * Dariana Saldaña, MAK,MINING PROFESSIONALS,FOURDRINIER OPERATOR - 10/03/2018 12:00 AM CDT [facility] [address] [address] Medical Clinic Report Signed PATIENT NAME: JESUS GAXIOLA MR #: [id number] : 2005 ACCT: [id number] PROVIDER: DARIANA SALDAÑA APRN FOURDRINIER OPERATOR DOS: 10/03/2018 Patient Intake Chief Complaint Additional complaints recheck anxiety Language What is your primary language?: Nigerien Do you need an engraving supervisor?: No Allergies/Medications/Vitals Coded Allergies: No Known Allergies (Verified Allergy, Unknown, 10/03/18) Who is responsible for meds?: parents Medications Last Reconciled on 10/03/18 14:38 by Halie Machado LPN Escitalopram (ESCITALOPRAM) 10 Mg Tab 10 MG PO QDAY, #30 TAB 1 Refill Prov: DARIANA SALDAÑA, DNP FOURDRINIER OPERATOR NUNO 09/02/18 Vitals: Weight 127 lbs 3.287 oz / 57.7 kg Pulse 78 Blood Pressure 98/60 Sitting, Left Arm Pulse Oximetry 96%, room [facility] History of present illness Details Jesus presents to the clinic today, in the company of her father, for follow-up of anxiety and depression. She has been taking Lexapro for about 5 weeks. She continues to see Tamika Hernandez LP. She generally notes improvement. PHQ 9 improved from 16 on 08/29/2018 to 8 today. FADIA 7 down from 8 on 08/29/2018 to 3 today. The past month has been busy for her. 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 She has felt the support of family, friends and teammates. 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 She plans to attend the camp again next year. She has been training all summer for the cross-country running season that will begin in 2 weeks. While this is arduous, she does find enjoyment in running. She is conversant and pleasant and makes good eye contact during our visit. She reports difficulty with sleeping over the course of the summer. The events of the past month, and the loss of her friend, seem to aggravate this. She goe s to bed between 11 PM and 1 AM but oftentimes does not fall asleep until after 2 AM. She does not currently use medication to aid with and sleep, and she is not sure that she wants to start prescriptive therapy. Past, Family & Social History Past Medical History HEENT: Reports hx of: Ear infection Age at menarche: 10 Past Surgical History Surgical History: Denies hx of: Surgical Procedures Family Medical History Family history: Reports hx of: Cardiac Disorders (pgf-stents), Colorectal Cancer (pgf), Coronary Artery Disease (pgf), Dementia (pgm), Diabetes mellitus (pgf,pgm), Vision Problems (dad) Screening and Counseling Advanced Directive Advance Directive On File: No Advance Directive Info Provide: No Tobacco Use Screen Hx nicotine use: No Smoking Status: Never smoked Exposed to secondhand smoke: No Nicotine dependent: No Alcohol Use Screen Hx alcohol use: No Alcohol dependent: No Caffeine Use Screen Hx caffeine use: No Caffeine use disorder: No Substance Use Screen Hx substance use: No Rx abused/not used as intended: No Illegal drug use in past month: No Drug use screening: None Drug dependence: No Depression Screen (PHQ9) Little interest or pleasure...: 1 - Several days Feeling down, depressed...: 1 - Several days Trouble falling asleep...: 2 - More than half Feeling tired...: 1 - Several days Poor appetite...: 1 - Several days Feeling bad...: 1 - Several days Trouble concentrating...: 0 - Not at all Moving or speaking...: 0 - Not at all Thoughts of suicide...: 1 - Several days Difficulty at home or work...: Somewhat difficult PHQ9 Total Score: 8 Interpretation of Total Score: 5-9 Mild Anxiety Screen (FAIDA-7) Feeling nervous, anxious or on: 1-Several days Unable to control worryin-Not at all Worrying about different thin-Not at all Trouble relaxin-Several days Being so restless/hard to sit: 0-Not at all Easily annoyed or irritable: 1-Several days Feel something awful may happe: 0-Not at all GAD7 Total Score: 3 Interpretation of Total Score: 0-4 Minimal PHQ9 PHQ9 Flowsheet PHQ9 Flowsheet Diagnosis: Total Score Interpretation - 1-4 = Minimal 5-9 = Mild 10-14 = Moderate 15-19 = Moderately Severe 20-27 = Severe Date PHQ9 Score FADIA 7 Initials 08-29-19 16 8 dg 8--19 8 3 dg ROS Adult General - [facility] Constitutional: Denies: Appetite change, Fatigue, Fever Nose/Sinuses: Denies: Epistaxis, Nasal congestion, Rhinorrhea Head: Denies: Dizziness, Headache, Lightheadedness Cardiovascular: Denies: Chest pain, Palpitations, Peripheral edema Respiratory: Denies: Cough, Dyspnea, Wheezing Gastrointestinal: Denies: Abdominal pain, Change in bowel habits, GERD, Nausea Psychiatric: Complains of: Anxiety, Depressive symptoms, Sleep disorder Exam Constitutional Details Pleasant and conversant General appearance: Comfortable Nutritional status: Normal Psychiatric Appearance: Appropriate Attitude: Cooperative Speech: Spontaneous Language: Appropriate Affect: Appropriate Thought process: Appropriate Level of consciousness: Alert Judgement: Appropriate Mental status: Grossly normal Affect: Normal Judgment: Normal Orientation: A/O x3 Assessment/Plan Subjective/Objective [S] Ambulatory Assessment/Plan: Anxiety and depression - F41.9, F32.9 Continue Lexapro. Refill today. Continue follow-up with Leslie Balbuena PSYD, LP. Follow-up here in the clinic in 5 months. Follow-up for immediate recheck with thoughts of hurting self or others. Insomnia Insomnia, unspecified type - G47.00 Insomnia type: unspecified We discussed pros and cons of various sleep aids. She will consider use of melatonin and/or lavender oil. Follow-up here in the clinic with ongoing ivis rns. Notes She expresses understanding and agrees with plan of care. Reviewed Medications ESCITALOPRAM 10 MG TAB: 10 MG PO QDAY #30 Ref 1 Assessment/Plan [P] Patient Education Patient Education Provided: Yes Type of Patient Education Give: Verbal Authored By: <Electronically signed by DARIANA SALDAÑA> 10/03/18 1650 Other Signing Provider: D: DARIANA SALDAÑA DNP CNP CEN T: TYLER documented in this encounter Plan of Treatment Not on file documented as of this encounter Visit Diagnoses Not on filedocumented in this encounter Additional Health Concerns Infection Onset Date Last Indicated Resolved Time COVID-19 Rule Out 12/13/2019 12/13/2019 12/13/2019 9:16 AM CDT COVID-19 Rule Out 04/08/2020 04/08/2020 04/08/2020 1:39 PM METAL SANDER documented as of this encounter Care Teams Funeral Home Location Manager Relationship Specialty Start Date End Date Aden Gaxiola MD [address] [place] [phone] PCP - General Family Medicine 05/27/18 07/31/22 Dariana Saldaña, DNP,MINING PROFESSIONALS,FOURDRINIER OPERATOR [address] [place] [phone] PCP - General Nurse Practitioner 08/01/22 Marlee Dsouza, MINING PROFESSIONALS, PMHNP- [address] [place] [phone] Psychiatric Provider TILE LAYER SUPERVISOR [facility] 12/07/20 3 documented as of this encounter Additional Source Comments PLEASE NOTE: Replies to this message will not be received.[facility] and [facility]
--- OUTSIDE RECORDS SUMMARY | 2024-07-13 22:11 | XMS_ITS | Referral Summary ---
Author Organization [employer] [facility] Address [address] [place] [address] Care Team Providers Care Readiness Paraprofessional Name Role Phone Annetta Loyola DNP,OCCUPATIONAL THERAPY SUPERVISOR,TOP STOP ATTACHER Primary Care Prov ider Allergies No known active allergies Medications norgestimate-ethin yl estradioL (SPRINTEC) 0.25-35 mg-mcg oral TabletIndications: Oral contraception initial prescription Take 1 Tablet by mouth in the morning. 84 Tablet 4 4 02/19/20 25 Active Active Problems Problem Noted Date Diagnosed Date Anxiety and depression 10/06/2021 Major depressive disorder 08/27/2018 Generalized anxiety disorder 07/02/2018 Immunizations Immunization Administration Dates Next Due DTaP Vac, <7 Yrs, IM (Daptacel,Infanrix,Tripedia) 01/22/2008,04/20/2004 DTaP/HEPB/IPV Vaccine, IM (Pediarix) 2003, 2003,2003 HIB, PRP-OMP Conj, IM, (3 do ses) (PedvaxHib) 08/17/2006,2003,2003,03/17 Hepatitis A Vaccine, IM, Ped /Adol (2 doses) 08/17/2006,01/09/2006 Human Papilloma Virus Vaccin e(Gardasil 9) 01/17/2016,09/14/2015,07/12/2015 Influenza Vac, H1N1 02/25/2009,01/18/2009 Influenza Vac, IM, Quadrivalent 12/20/2017 Influenza Vac, IM, Quadrival ent Preserv Free, (>6 months) 12/14/2021,12/23/2020,12/19/2019,01/29,01/11/2017,11/05/2015,12/15/2014 ,01/27/2014 Influenza Vac, IM, Trivalent (6-35 Mo) 4,2004 Influenza Vac, IM, Trivalent (>3 Yrs) ,12/06/2011,12/06/2010,12/10 Influenza Vac, IM, Trivalent , Preserv Free (Flulaval)(Fluarix)(Fluzone) 02/19/2024 Influenza Vac,IM, Quadrivale nt, Preservative Free, (>4 Yrs)(ccIIV4) 12/29/2022 MMR Vaccine (Mumps, Measles, Rubella) SQ 01/22/2008,2004 Meningococcal Conj Vac,Tetra valent, IM (Menactra) 10/06/2021,07/12/2015 Pneumococcal Conj,Poly,Vac,IM,<5Yr(Prevnar 7) 04/20/2004,2003,2003 Poliovirus Vaccine, IM or SQ (IPV) 01/22/2008 SARS-CoV-2, IM (COVID-19)(Pfizer)(Comirnaty),12+yrs, 30mcg/0.3mL 02/19/2024 SARS-CoV-2, IM (COVID-19)(Crono)(Purple Label) 02/11/2021,06/17/2020,05/26/2020 Tdap Vaccine, IM, (Adacel)(Boostrix) 07/12/2015 Varicella Vaccine, SQ (Varivax) 01/22/2008,01/13 Social History Tobacco Use Types Packs/Day Years Used Date Smoking Tobacco: Never Smokeless Tobacco: Never Alcohol Use Standard Drinks/Week Comments Never 0 (1 standard drink = 0.6 oz pur e alcohol) B1300 Health Literacy Answer Date Recor ded How often do you need to hav e someone help you when you read instructions, pamphlets, or other written material from your doctor or pharmacy? Rarely 02/19/2024 [facility] Utilities Answer Date Recorded In the past 12 months has th e [employer] gas, oil, or water [employer] threatened to shut off services in your home? No 02/19/2024 Humiliation, Afraid, Rape, and Kick questionnair e Answer Date Recorded Within the last year, have y ou been afraid of your partner or ex-partner? No 10/06/2021 Within the last year, have y ou been humiliated or emotionally abused in other ways by your partner or ex-partner? No Within the last year, have y ou been kicked, hit, slapped, or otherwise physically hurt by your partner or ex-partner? No 10/06/2021 Within the last year, have y ou been raped or forced to have any kind of sexual activity by your partner or ex-partner? No 10/06/2021 Social Connection and Isolat ion Panel [NHANES] Answer Date Recorded In a typical week, how many times do you talk on the phone with family, friends, or neighbors? More than three times a week 02/19/2024 How often do you get togethe r with friends or relatives? More than three times a week 02/19/2024 How often do you attend chur or sikh services? 1 to 4 times per year 02/19/2024 Do you belong to any clubs o r organizations such as worship groups, unions, fraternal or athletic groups, or school groups? Yes 02/19/2024 How often do you attend meet ings of the clubs or organizations you belong to? More than 4 times per year 02/19/2024 Are you , , di vorced, , never , or living with a partner? Never 02/19/2024 AUDIT-C Answer Date Recorded Q1: How often do you have a drink containing alc ohol? 2-3 times a week 02/19/2024 Q2: How many drinks containi ng alcohol do you have on a typical day when you are drinking? 1 or 2 02/19/2024 Q3: How often do you have si x or more drinks on one occasion? Less than monthly 02/19/2024 Overall Financial Resource Strain (CARDIA) Answe r Date Recorded How hard is it for you to pa y for the very basics like food, housing, medical care, and heating? Somewhat hard 02/19/2024 [facility] [place] [facility] Occupat [facility] Health - Occupational Stress Questionnaire Answer Date Recorded Do you feel stress - tense, restless, nervous, or anxious, or unable to sleep at night because your mind is troubled all the time - these days? Only a little 02/19/2024 Exercise Vital Sign Answer Date Recorde d On average, how many days pe r week do you engage in moderate to strenuous exercise (like a brisk walk)? 5 days 02/19/2024 On average, how many minutes do you engage in exercise at this level? 30 min 02/19/2024 Hunger Vital Sign Answer Date Recorded Within the past 12 months, y ou worried that your food would run out before you got the money to buy more. Never true 02/19/20 24 Within the past 12 months, t he food you bought just didn't last and you didn't have money to get more. Never true 02/19/2024 PRAPARE - Transportation Answer Date Re corded In the past 12 months, has l ack of transportation kept you from medical appointments or from getting medications? No 02/02 In the past 12 months, has l ack of transportation kept you from meetings, work, or from getting things needed for daily living? No 02/19/2024 Housing Stability Vital Sign Answer Juanjo e Recorded In the last 12 months, was t here a time when you were not able to pay the mortgage or rent on time? No 02/19/2024 Number of Times Moved in the Last Year Not on fi le 02/19/2024 At any time in the past 12 m [facility], were you homeless or living in a penitentiary (including now)? No 02/19/2024 Housing Stability Answer Date Recorded In the last 12 months, was t here a time when you were not able to pay the mortgage or rent on time? No 02/19/2024 Number of Places Lived in the Last Year Not on f ile 02/19/2024 Number of Places Lived in the Last Year (Outpati ent) Not on file 02/19/2024 Number of Places Lived in the Last Year (Inpatie nt) Not on file 02/19/2024 Unstable Housing in the Last Year Not on file 02/19/2024 Depression (PHQ-9) Answer Date Recorded Last PHQ-9 Score 8 02/19/2024 Thoughts of self harm Not at all 02/19/2024 Pediatric Housing Stability Answer Date Recorded At any time in the past 12 m [facility], were you homeless or living in a penitentiary (including now)? No 02/19/2024 Number of Times Moved in the Last Year Not on fi le 02/19/2024 Housing Condition Worry Not on file 02/19/20 24 Caregiver Education and Work Answer Juanjo e Recorded High School Degree Not on file 02/19/2024 How often do you need to hav e someone help you when you read instructions, pamphlets, or other written material from your doctor or pharmacy? Rarely 02/19/2024 Comments No Sex and Gender Information Value Date Recorded Sex Assigned at Not on file Legal Sex Female 9:01 AM CDT Gender Identity Not on file Sexual Orientation Not on file Last Filed Vital Signs Vital Sign Reading Time Taken Comments Blood Pressure 112/68 02/19/2024 3:13 PM SENIOR PHYSICIAN Pulse 86 02/19/2024 3:13 PM SENIOR PHYSICIAN Temperature 36.3 C (97.3 F) 08/02/2022 3:02 PM CDT Respiratory Rate 16 12/13/2019 8:38 AM CDT Oxygen Saturation 96% 02/19/2024 3:13 PM SENIOR PHYSICIAN Inhaled Oxygen Concentration - - Weight 69.4 kg (153 lb) 02/19/2024 3:13 PM SENIOR PHYSICIAN Height 176.5 cm (5' 9.5) 02/19/2024 3:13 PM SENIOR PHYSICIAN Body Mass Index 22.27 02/19/2024 3:13 PM SENIOR PHYSICIAN Functional Status * Are you deaf or do you have serious difficulty hearing? Answer Date of Assessment Author No 12/13/2019 8:23 AM CDT Swapna Rousseau RN * Are you blind or do you have serious difficulty seeing, even when wearing glasses? Answer Date of Assessment Author No 12/13/2019 8:23 AM CDT Swapna Rousseau RN * Do you have serious difficulty walking or climbing stairs? Answer Date of Assessment Author No 12/13/2019 8:23 AM CDT Swapna Rousseau RN * Do you have difficulty dressing or bathing? Answer Date of Assessment Author No 12/13/2019 8:23 AM Swapna Burrell RN * Do you have difficulty doing errands alone such as visiting a doctor's office or shopping because of a physical, mental, or emotional condition? Answer Date of Assessment Author No 12/13/2019 8:23 AM Swapna Burrell RN Mental Status * Do you have trouble concentrating, remembering, or making decisions because of a physical, mental, or emotional condition? Answer Entry Date Author No 12/13/2019 8:23 AM Swapna Burrell RN Plan of Treatment Not on file Insurance [facility] Care Teams Readiness Paraprofessional Relationship Specialty Start Date End Date Annetta Loyola, DNP,OCCUPATIONAL THERAPY SUPERVISOR,TOP STOP ATTACHER [address] [place] [phone] PCP - General Nurse Practitioner 08/01/22 Additional Source Comments PLEASE NOTE: Replies to this message will not be received.[facility]
--- OUTSIDE RECORDS SUMMARY | 2024-07-13 22:11 | XMS_ITS | Encounter Summary ---
Author Organization [employer] [facility] Address [address] [place] [address] Care Team Providers Care Eye Specialist Name Role Phone Aden Gaxiola MD Primary Care Provider [phone]- [phone] Marlee Dsouza COMMISSIONER OF RELOCATION SERVICES, PMHNP-BC Unavailable Unav ailable Annetta Loyola DNP,COMMISSIONER OF RELOCATION SERVICES,AGATE SETTER Primary Care Prov ider Encounter Details Date Type Department Care Team (Late st Contact Info) Description 09/15/2018 Historical Conversion [facility] [address] [phone] Annetta Loyola, DNP,COMMISSIONER OF RELOCATION SERVICES,AGATE SETTER [address] [phone] Social History Tobacco Use Types Packs/Day Years Used Date Smoking Tobacco: Never Assessed Comments Unknown Sex and Gender Information Value Date Recorded Sex Assigned at Not on file Legal Sex Female 9:01 AM CDT Gender Identity Not on file Sexual Orientation Not on file documented as of this encounter Plan of Treatment Not on file documented as of this encounter Visit Diagnoses Not on filedocumented in this encounter Additional Health Concerns Infection Onset Date Last Indicated Resolved Time COVID-19 Rule Out 12/13/2019 12/13/2019 12/13/2019 9:16 AM CDT COVID-19 Rule Out 04/08/2020 04/08/2020 04/08/2020 1:39 PM DENTAL SCHEDULING COORDINATOR documented as of this encounter Care Teams Eye Specialist Relationship Specialty Start Date End Date Aden Gaxiola MD [address] [place] [phone] PCP - General Family Medicine 05/27/18 07/31/22 Annetta Loyola, MAK,COMMISSIONER OF RELOCATION SERVICES,AGATE SETTER [address] [place] [phone] PCP - General Nurse Practitioner 08/01/22 Marlee Dsouza, SHELLY, PMHNP-BC [address] [place] [phone] Psychiatric Provider MANAGED CARE LIAISON [facility] 12/07/20 3 documented as of this encounter Additional Source Comments PLEASE NOTE: Replies to this message will not be received.[facility] and [facility]
--- OUTSIDE RECORDS SUMMARY | 2024-07-13 22:11 | XMS_ITS | Encounter Summary ---
Author Organization [employer] [facility] Address [address] [place] [address] Care Team Providers Care Assignment Desk Assistant Name Role Phone Aden Gaxiola MD Primary Care Provider [phone]- [phone] Marlee Dsouza SHANK TURNER, PMHNP-BC Unavailable Unav ailable Annetta Loyola DNP,SHANK TURNER,KENNEL SUPERVISOR Primary Care Prov ider Encounter Details Date Type Department Care Team (Late st Contact Info) Description 10/03/2018 Historical Conversion [facility] [address] [phone] Annetta Loyola, DNP,SHANK TURNER,KENNEL SUPERVISOR [address] [phone] Social History Tobacco Use Types Packs/Day Years [...] Rule Out 04/08/2020 04/08/2020 04/08/2020 1:39 PM LABORATORY TECH documented as of this encounter Care Teams Assignment Desk Assistant Relationship Specialty Start Date End Date Aden Gaxiola MD [address] [place] [phone] PCP - General Family Medicine 05/27/18 07/31/22 Annetta Loyola, MAK,SHANK TURNER,KENNEL SUPERVISOR [address] [place] [phone] PCP - General Nurse Practitioner 08/01/22 Marlee Dsouza, SHELLY, PMHNP-BC [address] [place] [phone] Psychiatric Provider METHOD CONSULTANT [facility] 12/07/20 3 documented as of this encounter Additional Source Comments PLEASE NOTE: Replies to this message will not be received.[facility] and [facility]
--- OUTSIDE RECORDS SUMMARY | 2024-07-13 22:11 | XMS_ITS | Encounter Summary ---
Author Organization [employer] [facility] Address [address] [place] [address] Care Team Providers Care Narrow Fabrics Weaver Name Role Phone Aden Gaxiola MD Primary Care Provider [phone]- [phone] Marlee Dsouza DIRECTOR OF ONCOLOGY, PMHNP- Unavailable Unav ailable Dariana Saldaña DNP,DIRECTOR OF ONCOLOGY,SOLUTION LEAD Primary Care Prov ider Encounter Details Date Type Department Care Team (Late st Contact Info) Description 08/14/2016 Historical Conversion [facility] [address] [phone] Dariana Saldaña, MAK,DIRECTOR OF ONCOLOGY,SOLUTION LEAD [address] [phone] Social History Tobacco Use Types Packs/Day Years Used Date Smoking Tobacco: Never Assessed Comments Unknown Sex and Gender Information Value Date Recorded Sex Assigned at Not on file Legal Sex Female 9:01 AM CDT Gender Identity Not on file Sexual Orientation Not on file documented as of this encounter Progress Notes * Dariana Saldaña, MAK,DIRECTOR OF ONCOLOGY,SOLUTION LEAD - 08/14/2016 12:00 AM CDT MEDICAL CLINIC REPORT PATIENT: JESUS GAXIOLA MR #: [id number] : 2005 DOS: 08/14/2016 Patient Intake Chief Complaint Additional complaints R knee pain x 2 months. NKI Allergies/Medications/Vitals Coded Allergies: No Known Allergies (Verified Allergy, Unknown, 08/14/16) Medications Last Reconciled on 08/14/16 09:23 by Halie Machado LPN No Active Prescriptions or Reported Meds Vitals: Weight 117 lbs 11.610 oz / 53.4 kg Pulse 80 Blood Pressure 90/62 Sitting, Left Arm Pulse Oximetry 95%, room HPI-[facility] - [facility] History of present illness Details Jesus is here with c/o right knee pain for about 2 months. While she was running hurdles in track, she noted a jolt-like sensation with kick out moveme nt followed by pain. Pain and an occasional popping sensation at the medial aspect of the knee with movement persists. Pain is aggravated by extending the knee, running and by walking. She has used i buprofen, ice and a brace with no sig improvement. Screening and Counseling Advanced Directive Advance Directive On File: No Tobacco Use Screen Hx nicotine use: [...] Drug use screening: None Drug dependence: No ROS Adult General - [facility] Constitutional: Denies: Appetite change, Fatigue, Fever Nose/Sinuses: Denies: Epistaxis, Nasal congestion, Rhinorrhea Head: Denies: Dizziness, Headache, Lightheadedness Respiratory: Denies: Cough, Dyspnea, Wheezing Gastrointestinal: Denies: Abdominal pain, Change in bowel habits, GERD, Nausea Genitourinary: Denies: Dysuria, Frequency, Hematuria, Urinary incontinence Musculoskeletal: Complains of: Joint pain (right knee - see HPI) Psychiatric: Denies: Anxiety, Depressive symptoms, Sleep disorder Exam Constitutional General appearance: Comfortable Nutritional status: Normal Musculoskeletal Details tenderness at the medial aspect of the knee; no effusion, ecchymosis or deformity; no varus or valgus laxity; anterior and posterior drawer tests neg Gait: Normal Psychiatric Appearance: Appropriate Attitude: Cooperative Speech: Spontaneous Language: Appropriate Affect: Appropriate Thought process: Appropriate Level of consciousness: Alert Judgement: Appropriate Mental status: Grossly normal Affect: Normal Judgment: Normal Orientation: A/O x3 Assessment/Plan Subjective/Objective [S] Ambulatory Assessment/Plan: Right knee pain - M25.561 Qualifiers: M25.561 - Acute pain of right knee Chronicity: acute Notes Jesus will f/u with PT - Morena Love. Consider imaging if no improvement with same. Pt and Mom express understanding and agree with plan of care. New Referrals Physical Therapy-[facility] , 30 days MORENA LOVE DPT Dx: Right knee pain - M25.561 Assessment/Plan [P] <Electronically signed by DARIANA Ceja DNP, CNP NUNO PIPER> 09/05/162019 Dictated By: DARIANA SALDAÑA, MAK SOLUTION LEAD NUNO Transcribed By: TYLER documented in this encounter Plan of Treatment Not on file documented as of this encounter Visit Diagnoses Not on filedocumented in this encounter Additional Health Concerns Infection Onset Date Last Indicated Resolved Time COVID-19 Rule Out 12/13/2019 12/13/2019 12/13/2019 9:16 AM CDT COVID-19 Rule Out 04/08/2020 04/08/2020 04/08/2020 1:39 PM HIGH SCHOOL ASSISTANT PRINCIPAL documented as of this encounter Care Teams Narrow Fabrics Weaver Relationship Specialty Start Date End Date Aden Gaxiola MD [address] [place] [phone] PCP - General Family Medicine 05/27/18 07/31/22 Dariana Saldaña DNP,SHELLY,SOLUTION LEAD [address] [place] [phone] PCP - General Nurse Practitioner 08/01/22 Marlee Dsouza APRN, PMHNP- [address] [place] [phone] Psychiatric Provider OCEANIC SCIENCES PROFESSOR Psych-Mental [facility] 12/07/20 3 documented as of this encounter Additional Source Comments PLEASE NOTE: Replies to this message will not be received.[facility] and [facility]
--- OUTSIDE RECORDS SUMMARY | 2024-07-13 22:11 | XMS_ITS | Encounter Summary ---
Author Organization [employer] [facility] Address [address] [place] [address] Care Team Providers Care Rescue Instructor Name Role Phone Aden Gaxiola MD Primary Care Provider [phone]- [phone] Marlee Dsouza PACKAGE MAKER, PMHNP-BC Unavailable Unav ailable Annetta Loyola DNP,PACKAGE MAKER,TECHNICAL WRITER Primary Care Prov ider Encounter Details Date Type Department Care Team (Late st Contact Info) Description 02/18/2010 Historical Conversion [facility] [address] [place] [phone] Starr Michaels MD [address] [place] [phone] Social History Tobacco Use Types Packs/Day Years [...] - Inhaled Oxygen Concentration - - Weight 22.7 kg (50 lb) 02/18/2010 9:07 AM HEALTH EVALUATOR Height - - Body Mass Index - - documented in this encounter Plan of Treatment Not on file documented as of this encounter Visit Diagnoses Not on filedocumented in this encounter Additional Health Concerns Infection Onset Date Last Indicated Resolved Time COVID-19 Rule Out 12/13/2019 12/13/2019 12/13/2019 9:16 AM CDT COVID-19 Rule Out 04/08/2020 04/08/2020 04/08/2020 1:39 PM HEALTH EVALUATOR documented as of this encounter Care Teams Rescue Instructor Relationship Specialty Start Date End Date Aden Gaxiola MD [address] [place] [phone] PCP - General Family Medicine 05/27/18 07/31/22 Annetta Loyola, DNP,PACKAGE MAKER,TECHNICAL WRITER [address] [place] [phone] PCP - General Nurse Practitioner 08/01/22 Marlee Dsouza, PACKAGE MAKER, PMHNP-BC [address] [place] [phone] Psychiatric Provider KINDERGARTEN PARAPROFESSIONAL [facility] 12/07/20 3 documented as of this encounter Additional Source Comments PLEASE NOTE: Replies to this message will not be received.[facility] and [facility]
--- OUTSIDE RECORDS SUMMARY | 2024-07-13 22:11 | XMS_ITS | Clinical Summary ---
Author Organization [employer] [facility] Address [address] [place] [address] Care Team Providers Care Baster Hand Name Role Phone Annetta Loyola DNP,ASSISTANT WOMEN'S ROWING COACH,DIRECT MARKETING ANALYST Primary Care Prov ider Allergies No known [...] SARS-CoV-2, IM (COVID-19)(Pfizer)(Comirnaty),12+yrs, 30mcg/0.3mL 02/19/2024 SARS-CoV-2, IM (COVID-19)(Pfizer)(Purple Label) 02/11/2021,06/17/2020,05/26/2020 Tdap Vaccine, IM, (Adacel)(Boostrix) 07/12/2015 Varicella Vaccine, SQ (Varivax) 01/22/2008,01/13 Family History Medical History Relation Name Comments Other Father vision problems Colon Cancer Paternal Grandfather Coronary artery disease Paternal Grandfather Dementia Paternal Grandfather Diabetes Paternal Grandfather Heart Disease Paternal Grandfather stents Dementia Paternal Grandmother Diabetes Paternal Grandmother Relation Name Status Comments Father Paternal Grandfather Paternal Grandmother Social History Tobacco Use Types Packs/Day Years [...] from your doctor or pharmacy? Rarely 02/19/2024 [facility] Utilities Answer Date Recorded In the past 12 months has e [employer], oil, or water [employer] threatened to shut off services in your [...] How often do you attend chur or alevism services? 1 to 4 times per year 02/19/2024 Do you belong to any clubs o r organizations such as zoroastrian groups, unions, fraternal or athletic groups, or [...] medical care, and heating? Somewhat hard 02/19/2024 [facility]at [facility] Health - Occupational Stress [...] any time in the past 12 m [facility], were you homeless or living in a long term (including now)? No 02/19/2024 Housing Stability Answer [...] any time in the past 12 m [facility], were you homeless or living in a long term (including now)? No 02/19/2024 Number of Times Moved in the Last Year Not on fi le 02/19/2024 Housing Condition Worry Not on file 02/19/20 Caregiver Education and Work Answer Juanjo e [...] Comments Blood Pressure 112/68 02/19/2024 3:13 PM BLOW MOLDER Pulse 86 02/19/2024 3:13 PM BLOW MOLDER Temperature 36.3 C (97.3 F) 08/02/2022 3:02 PM CDT Respiratory Rate 16 12/13/2019 8:38 AM CDT Oxygen Saturation 96% 02/19/2024 3:13 PM BLOW MOLDER Inhaled Oxygen Concentration - - Weight 69.4 kg (153 lb) 02/19/2024 3:13 PM BLOW MOLDER Height 176.5 cm (5' 9.5) 02/19/2024 3:13 PM BLOW MOLDER Body Mass Index 22.27 02/19/2024 3:13 PM BLOW MOLDER Plan of Treatment Health Maintenance Due Date Last Done Comments Chlamydia Screen Age 16-24 Years 2019 Meningococcal B Vaccines (1 of 2 - Standard) 2019 Cervical Cancer Screening 01/15/2024 Depression Screening 05/19/2024 02/19/2024 DTaP/Tdap/Td Vaccines (7 - Td or Tdap) 07/11/2025 07/12/2015, 01/22/2008, 04/20/2004, Additional history exists Varicella Zoster Sequential (1 of 2) 2053 Respiratory Syncytial Virus (RSV) Vaccine (1 - 1-dose 75+ series) 2078 Hepatitis B Vaccines Completed 2003, 2003, 2003 Pneumococcal Vaccine (0-49 Years) Aged Out 04/20/2004, 2003, 2003 No longer eligible based on patient's age to complete this topic HIB Vaccines Completed 08/17/2006, 07/04, 2003, Additional history exists Hepatitis A Vaccines Completed 08/17/2006, 01/10/20 06 HPV Vaccines Completed 01/17/2016, 09/02, 07/12/2015 Meningococcal Vaccines Completed 10/06/2021, 2015 COVID-19 Vaccine Completed 02/19/2024, , 12/14/2021, Additional history exists Influenza Vaccine Completed 02/19/2024, , 12/14/2021, Additional history exists HIV Screen Discontinued Hepatitis C Testing Discontinued [place] [address] [place] [address] [facility] Care Teams Baster Hand Relationship Specialty Start Date End Date Annetta Loyola, DNP,ASSISTANT WOMEN'S ROWING COACH,DIRECT MARKETING ANALYST [address] [phone] PCP - General Nurse Practitioner 08/01/22 Additional Source Comments PLEASE NOTE: Replies to this message will not be received.[facility] and [facility]
--- OUTSIDE RECORDS SUMMARY | 2024-07-13 22:11 | XMS_ITS | Encounter Summary ---
Author Organization [facility] Address [address] [place] [address] Care Team Providers Care Gage Maker Name Role Phone Aden Gaxiola MD Primary Care Provider [phone]- [phone] Marlee Dsouza CIRCUIT BOARD INSPECTOR, PMHNP-BC Unavailable Unav ailable Annetta Loyola DNP,CIRCUIT BOARD INSPECTOR,ASSOCIATE PROFESSOR OF [employer] Primary Care Prov ider Encounter Details Date Type Department Care Team (Late st Contact Info) Description 03/30/2017 Historical Conversion [facility] [address] [address] Annetta Loyola, DNP,CIRCUIT BOARD INSPECTOR,ASSOCIATE PROFESSOR OF [employer] [address] [phone] Social History Tobacco Use Types Packs/Day Years Used Date Smoking Tobacco: Never Assessed Comments Unknown Sex and Gender Information Value Date Recorded Sex Assigned at Not on file Legal Sex Female 9:01 AM CDT Gender Identity Not on file Sexual Orientation Not on file documented as of this encounter Progress Notes * Srikanth Lundberg MD - 12/20/2017 12:00 AM CDT [facility] [address] [address] Medical Clinic Report Signed PATIENT NAME: JESUS GAXIOLA MR #: [id number] : 2005 ACCT: [id number] SERVICE DATE: 12/20/2017 Patient Intake Chief Complaint Chief complaint: Flu shot Allergies/Medications/Vitals Coded Allergies: No Known Allergies (Verified Allergy, Unknown, 03/30/17) Medications Last Reconciled on 03/30/17 17:06 by Franchesca Cherry APRN,HARIKA No Medication Information Entered Immunization Admin Single: Yes Assessment/Plan Subjective/Objective Ambulatory assessment/plan: Notes New Office Procedures Fluzone-Inf - Adult Quad 3+ , Today INFLUENZA VACCINE [id number] QUAD (FLUZONE 5527-9095 QUAD) 60 MCG/0.5 ML SYRINGE: 0.5 MILLILITER INTRAMUSC Qty 1 INJ Assessment/Plan Additional information flu shot given in left deltoid Authored By: <Electronically signed by SRIKANTH LUNDBERG MD> 12/23/17 1127 Documented By: JOHN Cosigned By: SRIKANTH LUNDBERG MD Electronically signed by Annetta Loyola DNP,SHELLY,ASSOCIATE PROFESSOR OF [employer] at 12/02/2018 9:07 PM CDT * Franchesca Cherry CNM - 03/30/2017 12:00 AM CST MEDICAL CLINIC REPORT PATIENT: JEUSS GAXIOLA MR #: [id number] : 2005 DOS: 03/30/2017 Patient Intake Chief Complaint Chief complaint: ear pain Additional complaints Right ear pain for 1 week. Rates discomfort 4/10 but it does shoot to a 8/10 at times. A little over a week ago started with cough/runny nose/fever Allergies/Medications/Vitals Coded Allergies: No Known Allergies (Verified Allergy, Unknown, 03/30/17) Medications Last Reconciled on 03/30/17 17:06 by Franchesca Cherry CNM No Active Prescriptions or Reported Meds Vitals: Weight 123 lbs 14.376 oz / 56.2 kg Temperature 98.5 F / 36.94 C - Temporal Pulse 89 Respirations 16 Blood Pressure 98/62 Sitting, Left Arm Pulse Oximetry 97%, RA [facility] History of present illness Details Jesus is a pleasant, cooperative, 12 y.o. female who comes to the clinic today accompanied by her mother, reporting right ear pain for several days. Has had URI sx fo r a week, with cough, runny nose and headache. Had a fever up to 102 for about 4 days in the beginning. These sx have since resolved, but her right ear is painful, throbbing, and feels full. Denies dr lassiter. Has not had an ear infection in several years. No hx of eustachian tube dysfunction or tympanostomy. Has taken Tylenol and Sudafed at home with minimal relief. No one at home is sick, but has had sick classmates at school. Screening and Counseling Advanced Directive Advance Directive On File: No Tobacco Use Screen Hx nicotine use: No Smoking Status: Never smoked Exposed to secondhand smoke: No Alcohol Use Screen Hx alcohol use: No Caffeine Use Screen Hx caffeine use: No Substance Use Screen Hx substance use: No Drug use screening: None Exam Constitutional General appearance: Appears stated age, Appropriate hygiene, In no acute distress Nutritional status: Normal weight Patient age 12 Patient gender female Eyes Eyes: Conjunctivae pink, PERRL, Sclera clear Ears Ears: No discharge (Bilateral), External canal nontender (Bilateral) Ears - additional: Tympanic membrane: Bulging (Right), Dull (Right), Erythema (Right), Obstructed by cerumen (Left) Nose/Sinus Nose/Sinuses: Adequate airway, Nares patent, No discharge, No tenderness Mouth/Oropharynx Mouth/Oropharynx: Oral mucosa pink and moist Mouth/Oropharynx - additional: Tonsils: Negative for: Erythema (Bilateral), Exudate (Bilateral), Hypertrophy (Bilateral) Oropharynx: Erythema (mild), Postnasal drainage Neck Neck: Negative for: No lymphadenopathy (Subtonsillar node enlarged and tender on the right side) Respiratory Respiratory: Lung sounds clear bilaterally A/P, Respiratory effort unlabored Cardiovascular Heart: No murmur, gallop, rub, or click, Regular rate and rhythm Abdomen Abdomen: No organomegaly, No tenderness Psychiatric Mental status: Alert, Mental status grossly normal Assessment/Plan Subjective/Objective [S] Ambulatory Assessment/Plan: Acute right otitis media - H66.91 Will tx with amoxicillin 875mg tid x 10 days. Take with food. May use Tylenol or ibuprofen prn per fleet sales associate's instructions for discomfort. Call if no improvement in 48 hours. Notes New Medications AMOXICILLIN 875 MG TABLET: 875 MG OR TID 10 Days #30 Assessment/Plan [P] Patient Education Patient Education Provided: Yes Type of Patient Education Give: Verbal <Electronically signed by FRANCHESCA CHERRY> 03/30/17 1706 Dictated By: FRANCHESCA CHERRY CNM Transcribed By: CARINA Electronically signed by Annetta Loyola, MAK,CIRCUIT BOARD INSPECTOR,ASSOCIATE PROFESSOR OF [employer] at 12/02/2018 8:28 PM CDT documented in this encounter Plan of Treatment Not on file documented as of this encounter Visit Diagnoses Not on filedocumented in this encounter Additional Health Concerns Infection Onset Date Last Indicated Resolved Time COVID-19 Rule Out 12/13/2019 12/13/2019 12/13/2019 9:16 AM CDT COVID-19 Rule Out 04/08/2020 04/08/2020 04/08/2020 1:39 PM ELECTRICAL APPRENTICE documented as of this encounter Care Teams Gage Maker Relationship Specialty Start Date End Date Aden Gaxiola MD [address] [place] [phone] PCP - General Family Medicine 05/27/18 07/31/22 Annetta Loyola DNP,CIRCUIT BOARD INSPECTOR,ASSOCIATE PROFESSOR OF [employer] [address] [place] [phone] PCP - General Nurse Practitioner 08/01/22 Marlee Dsouza APRN, PMHNP-BC [address] [place] [phone] Psychiatric Provider [facility] 12/07/20 3 documented as of this encounter Additional Source Comments PLEASE NOTE: Replies to this message will not be received.[facility] and [facility]
--- OUTSIDE RECORDS SUMMARY | 2024-07-13 22:11 | XMS_ITS | Encounter Summary ---
Author Organization [employer] [facility] Address [address] [place] [address] Care Team Providers Care Manager House Name Role Phone Aden Gaxiola MD Primary Care Provider +1- [phone] Marlee Dsouza BOWSTRING MAKER, PMHNP-BC Unavailable Unav ailable Annetta Loyola DNP,BOWSTRING MAKER,MILITARY PAY CLERK Primary Care Prov ider Encounter Details Date Type Department Care Team (Late st Contact Info) Description 05/19/2010 Historical Conversion [facility] [address] [phone] Annetta Loyola, DNP,BOWSTRING MAKER,MILITARY PAY CLERK [address] [phone] Social History Tobacco Use Types Packs/Day Years [...] - Inhaled Oxygen Concentration - - Weight 24 kg (52 lb 14.6 oz) 05/19/2010 10:00 AM CDT Height 132.1 cm (4' 4) 05/19/2010 10:00 AM CDT Body Mass Index 13.76 05/19/2010 10:00 AM CDT Body Mass Index Percentile 8.94% 05/19/2010 10: 00 AM CDT Growth Chart: [facility] (Girls, 2- 20 Years) documented in this encounter Plan of Treatment Not on file documented as of this encounter Visit Diagnoses Not on filedocumented in this encounter Additional Health Concerns Infection Onset Date Last Indicated Resolved Time COVID-19 Rule Out 12/13/2019 12/13/2019 12/13/2019 9:16 AM CDT COVID-19 Rule Out 04/08/2020 04/08/2020 04/08/2020 1:39 PM CLINICAL SECRETARY documented as of this encounter Care Teams Manager House Relationship Specialty Start Date End Date Aden Gaxiola MD [address] [place] [phone] PCP - General Family Medicine 05/27/18 07/31/22 Annetta Loyola, DNP,BOWSTRING MAKER,MILITARY PAY CLERK [address] [place] [phone] PCP - General Nurse Practitioner 08/01/22 Marlee Dsouza, SHELLY, PMHNP-BC [address] [place] [phone] Psychiatric Provider [facility] 12/07/20 3 documented as of this encounter Additional Source Comments PLEASE NOTE: Replies to this message will not be received.[facility]
--- OUTSIDE RECORDS SUMMARY | 2024-07-13 22:11 | XMS_ITS | Encounter Summary ---
Author Organization [facility] Address [address] [place] [address] Care Team Providers Care Software Validation Engineer Name Role Phone Aden Gaxiola MD Primary Care Provider +1- [phone] Marlee Dsouza CORRECTIONAL SUPPLY SUPERVISOR, PMHNP-BC Unavailable Unav ailable Dariana Saldaña DNP,CORRECTIONAL SUPPLY SUPERVISOR,MANAGER REVENUE Primary Care Prov ider Encounter Details Date Type Department Care Team (Late st Contact Info) Description 08/29/2018 Historical Conversion [facility] [address] [phone] Dariana Saldaña, DNP,CORRECTIONAL SUPPLY SUPERVISOR,MANAGER REVENUE [address] [phone] Social History Tobacco Use Types Packs/Day Years Used Date Smoking Tobacco: Never Assessed Comments Unknown Sex and Gender Information Value Date Recorded Sex Assigned at Not on file Legal Sex Female 9:01 AM CDT Gender Identity Not on file Sexual Orientation Not on file documented as of this encounter Last Filed Vital Signs Vital Sign Reading Time Taken Comments Blood Pressure 94/62 08/29/2018 1:55 PM CDT Pulse - - Temperature - - Respiratory Rate - - Oxygen Saturation - - Inhaled Oxygen Concentration - - Weight 57.9 kg (127 lb 10.3 oz) 08/29/2018 1:55 PM CDT Height 175.3 cm (5' 9) 08/29/2018 1:55 PM CDT Body Mass Index 18.85 08/29/2018 1:55 PM CDT Body Mass Index Percentile 30.40% 08/29/2018 1:5 5 PM CDT Growth Chart: CDC (Girls, 2- 20 Years) documented in this encounter Progress Notes * Dariana Saldaña, DNP,CORRECTIONAL SUPPLY SUPERVISOR,MANAGER REVENUE - 08/29/2018 12:00 [place] [address] Medical Clinic Report Signed PATIENT NAME: JESUS GAXIOLA MR #: [id number] : 2005 ACCT: [id number] PROVIDER: DARIANA SALDAÑA APRN MANAGER REVENUE DOS: 08/29/2018 Patient Intake Chief Complaint Chief complaint: sports physical Additional complaints 13 year well child exam and sports physical. Language What is your primary language?: Iraqi Do you need an timber cutter?: No Allergies/Medications/Vitals Coded Allergies: No Known Allergies (Verified Allergy, Unknown, 08/29/18) Who is responsible for meds?: parents Medications Last Reconciled on 08/29/18 14:04 by Halie Machado LPN No Active Prescriptions or Reported Meds Vitals: Height 69 in / 175.26 cm Weight 127 lbs 10.341 oz / 57.9 kg BSA 1.67 m2 BMI 18.9 kg/m2 Pulse 82 Blood Pressure 94/62 Sitting, Left Arm Pulse Oximetry 97%, room Past, Family & Social History Past Medical [...] Depression Screen (PHQ9) Little interest or pleasure...: 2 - More than half Feeling down, depressed...: 3 - Nearly every day Trouble falling asleep...: 2 - More than half Feeling tired...: 2 - More than half Poor appetite...: 0 - Not at all Feeling bad...: 2 - More than half Trouble concentrating...: 2 - More than half Moving or speaking...: 2 - More than half Thoughts of suicide...: 1 - Several days Difficulty at home or work...: Somewhat difficult PHQ9 Total Score: 16 Interpretation of Total Score: 15-19 Moderately Severe PHQ-9 Questionnaire: Complete and positive Anxiety Screen (FADIA-7) Feeling nervous, anxious or on: 2-More than half the days Unable to control worryin-More than half the days Worrying about different thin-Several days Trouble relaxin-Several days Being so restless/hard to sit: 0-Not at all Easily annoyed or irritable: 2-More than half the days Feel something awful may happe: 0-Not at all GAD7 Total Score: 8 Interpretation of Total Score: 5-9 Mild PHQ9 PHQ9 Flowsheet PHQ9 Flowsheet Diagnosis: Total Score Interpretation - 1-4 = Minimal 5-9 = Mild 10-14 = Moderate 15-19 = Moderately Severe 20-27 = Severe Date PHQ9 Score FADIA 7 Initials 08-29-19 16 8 dg HIS-Wellchild 13-18Y - [facility] History Details recent issues with anxiety and depression; PHQ9/GAD7 reviewed with the pt. no thoughts of hurting self or others; she sees Leslie Balbuena Accompanied by Accompanied by: Dad Interval history Accidents: No Constipation: No Encopresis: No Enuresis: No Family issues: n Hearing concerns: No Interval illness: No Vision concerns: Yes Hearing Screening Hearing test method: Audiometry: Left, Right Pure Tone Audiometry 500 Hz Left Ear @ 25 dB: Pass 500 Hz Right Ear @ 25 dB: Pass 1000 Hz Left Ear @ 20 dB: Pass 1000 Hz Right Ear @ 20 dB: Pass 2000 Hz Left Ear @ 20 dB: Pass 2000 Hz Right Ear @ 20 dB: Pass 4000 Hz Left Ear @ 20 dB: Pass 4000 Hz Right Ear @ 20 dB: Pass 6000 Hz Left Ear @ 20 dB: Pass 6000 Hz Right Ear @ 20 dB: Pass Vision Screening Distance Visual Acuity: Left (20/20, +1 pass), Right (20/125) Near Visual Acuity (Plus Lens): Left (20/20, +1 pass), Right (20/125) Dyslipidemia Risk Assessment Family w/DC, angina, stroke: Yes Parent w/chol >240 mg/dL: No Pt. has DM, HTN, BMI >95%: No Pt. has mod/high risk med cond: No TB Risk Assessment 1. Child born outside the [place]?: No 2. Traveled outside the [place]?: No 3. Exposed to anyone w/TB?: No 4. Any close contact w/person: No 5. Spend time w/persons in manuel: No 6. Drank raw milk/ate unpast.: No 7. House mem. born outside [place]?: No 8. House mem. olya. outside [place]: No Sexual History Sexually active: No Nutrition Diet: Regular If avg milk < 32oz/d Vit. D: Discussed (yes) Vitamins: No Fluoride: Water Development Development 13-18 years: Does/is: Able to do age appr. task, Aware of appearance, Build/sustain friendships, Develop and voice opinion, Improving strength/speed, Increasingly independent, Math skills appr. for age, Planning for future, Read appropriate for age Education/Guidance Environmental: Neighborhood hazards, Passive smoking exposure, Play equipment, Sun exposure Injury prevention: Guns, Helmets Motor vehicle safety: Seatbelt use Nutrition Counseling: Healthy food choices, Nutritious snacks Oral Care: [place] teeth twice daily, Encourage flossing, Encourage regular dental visits Miscellaneous: Encourage books/reading, Limit TV watching, Physical activity/exercise EXAM-Wellchild 13-18Y - [facility] General appearance: pleasant, interactive, healthy Growth chart: Printed for patient/parent Parent-child interaction: positive Evidence of abuse or neglect: No Eye abnormalities: Negative for: Conjunctival injection, Discharge, Nystagmus, Strabismus Funduscopic exam: Normal Right tympanic membrane: Normal Left tympanic membrane: Normal Nostrils: Both patent; Negative for: Drainage, Obstruction Oral mucous membranes: Moist Oral cavity: Normal Oropharynx: FINDINGS: normal Tonsils: FINDINGS: normal Neck: FINDINGS: Supple; NEGATIVE FOR: Adenopathy, Masses Thyroid: Size: normal Texture: normal Nodule: none Respiratory effort: Breathing unlabored Breath sounds: Normal: Left lung, Right lung Heart rhythm: Regular Heart murmur: No Peripheral pulses norm/symm: Yes Abdominal palpation: Soft, Nontender; No: Distention, Guarding, Hernia, Mass, Organomegaly, Rebounding, Rigidity, Tenderness Bowel sounds: Normal: Left Upper Quadrant, Left Lower Quadrant, Right Upper Quadrant, Right Lower Quadrant exam deferred: Yes Extremities: Normal Skin: Normal Motor function: Grossly intact Sensory function: Grossly intact Assessment/Plan Subjective/Objective [S] Ambulatory Assessment/Plan: Well child visit Encounter for routine child health examination without abnormal findings - Z00.129 Abnormal finding presence: without abnormal findings Sports physical - Z02.5 Anxiety and depression - F41.9, F32.9 Notes Education reviewed as indicated. PHQ9/GAD7 reviewed. No thoughts of hurting self or others. Rx for Lexapro to use as directed. F/U in 3-4 weeks. Cleared for participation in sports for 3 years. She expresses understanding and agrees with plan of care. New Medications ESCITALOPRAM 10 MG TAB: 10 MG PO QDAY #30 Ref 1 Assessment/Plan [P] Patient Education Patient Education Provided: Yes Type of Patient Education Give: Verbal Authored By: <Electronically signed by DARIANA SALDAÑA> 09/15/181943 Other Signing Provider: D: DARIANA SALDAÑA DNP CNP NUNO T: TYLER Electronically signed by Dariana Saldaña DNP,CORRECTIONAL SUPPLY SUPERVISOR,MANAGER REVENUE at 12/09/2018 12:25 PM CDT documented in this encounter Plan of Treatment Not on file documented as of this encounter Visit Diagnoses Not on filedocumented in this encounter Additional Health Concerns Infection Onset Date Last Indicated Resolved Time COVID-19 Rule Out 12/13/2019 12/13/2019 12/13/2019 9:16 AM CDT COVID-19 Rule Out 04/08/2020 04/08/2020 04/08/2020 1:39 PM PAINTING SUPERVISOR documented as of this encounter Care Teams Software Validation Engineer Relationship Specialty Start Date End Date Aden Gaxiola MD [address] [place] [phone] PCP - General Family Medicine 05/27/18 07/31/22 Dariana Saldaña DNP,CORRECTIONAL SUPPLY SUPERVISOR,MANAGER REVENUE [address] [phone] PCP - General Nurse Practitioner 08/01/22 Marlee Dsouza APRN, PMHNP- [address] [phone] Psychiatric Provider [facility] 12/07/20 3 documented as of this encounter Additional Source Comments PLEASE NOTE: Replies to this message will not be received.[facility] and [facility]
--- OUTSIDE RECORDS SUMMARY | 2024-07-13 22:11 | XMS_ITS | Clinical Summary ---
Author Organization [facility] & [facility] Address [facility] [place] [address] Care Team Providers Care Property Appraiser Name Role Phone Unavailable Primary Care Provider Unavailabl e Medications No known medications Active Problems No known active problems Social History Tobacco Use Types Packs/Day Years Used Date Smoking Tobacco: Never Smokeless Tobacco: Never Tobacco Cessation:Counseling Given: Not Answered Social Connections Answer Date Recorded Do you often feel lonely or isolated from those around you? 0 05/12/2023 Financial Resource Strain Answer Date R ecorded Difficulty of Paying Living Expenses 3 03/31/2024 Difficulty of Paying Living Expenses Not on file 03/31/2024 Food Insecurity Answer Date Recorded Do you worry your food will run out before you are able to buy more? 1 05/12/2023 Transportation Needs Answer Date Record ed Does lack of transportation keep you from medica l appointments? 1 05/12/2023 Does lack of transportation keep you from work, meetings or getting things that you need? 1 05/12/2023 Housing Stability Answer Date Recorded What is your housing situation today? 1 05/12/2023 Utilities Answer Date Recorded Do you have trouble paying f or utilities (for example, heat, electricity, water, phone)? 1 05/12/2023 Comments No Sex and Gender Information Value Date Recorded Sex Assigned at Not on file Legal Sex Female 7:06 AM ANIMAL RIDE MANAGER Gender Identity Not on file Sexual Orientation Not on file Obstetrics History Last Filed Vital Signs Vital Sign Reading Time Taken Comments Blood Pressure 116/70 05/12/2023 10:49 AM ANIMAL RIDE MANAGER Pulse 72 05/12/2023 10:49 AM ANIMAL RIDE MANAGER Temperature 37.1 C (98.7 F) 05/12/2023 10:49 AM ANIMAL RIDE MANAGER Respiratory Rate - - Oxygen Saturation 99% 05/12/2023 10:49 AM ANIMAL RIDE MANAGER Inhaled Oxygen Concentration - - Weight - - Height - - Body Mass Index - - Plan of Treatment Health Maintenance Due Date Last Done Comments Tdap 2014 Depression screening for age 12+ 2015 HIV for age 15-65 2018 HPV series for age 9-26 (1 - 3-dose series) 2018 Chlamydia for age 16-24 2019 BMI (ht and wt on same day) for age 18+ 2021 Hepatitis C screening for age 18-79 2021 Tetanus booster 2023 Pap test for age 21-65 01/15/2024 Influenza Vaccine (Season Ended) 2024 COVID-19 vaccine series Completed 02/19/20 24, 12/29/2022, 12/14/2021, Additional history exists Meningococcal series for age 11-21 Aged Out No longer eligible based on patient's age to complete this topic Pneumococcal series for age 6-49 Aged Out No longer eligible based on patient's age to complete this topic Insurance
--- OUTSIDE RECORDS SUMMARY | 2024-07-13 22:11 | XMS_ITS | Encounter Summary ---
Author Organization [employer] [facility] Address [address] [place] [address] Care Team Providers Care Raftsman Name Role Phone Aden Gaxiola MD Primary Care Provider [phone]- [phone] Marlee Dsouza SENIOR FRONT END WEB DEVELOPER, PMHNP-BC Unavailable Unav ailable Annetta Loyola DNP,SENIOR FRONT END WEB DEVELOPER,CUSTOMER SALES SPECIALIST Primary Care Prov ider Encounter Details Date Type Department Care Team (Late st Contact Info) Description 03/04/2012 Historical Conversion [facility] [address], [place] [address] Britney Ying MD [address] [place], [place] [phone] Social History Tobacco Use Types Packs/Day Years [...] - Inhaled Oxygen Concentration - - Weight 27.5 kg (60 lb 10 oz) 03/04/2012 9:26 AM CLASSIFIED AD CLERK Height - - Body Mass Index - - documented in this encounter Plan of Treatment Not on file documented as of this encounter Visit Diagnoses Not on filedocumented in this encounter Additional Health Concerns Infection Onset Date Last Indicated Resolved Time COVID-19 Rule Out 12/13/2019 12/13/2019 12/13/2019 9:16 AM CDT COVID-19 Rule Out 04/08/2020 04/08/2020 04/08/2020 1:39 PM CLASSIFIED AD CLERK documented as of this encounter Care Teams Raftsman Relationship Specialty Start Date End Date Aden Gaxiola MD [address] [place] [phone] PCP - General Family Medicine 05/27/18 07/31/22 Annetta Loyola, MAK,SENIOR FRONT END WEB DEVELOPER,CUSTOMER SALES SPECIALIST [address] [place] [phone] PCP - General Nurse Practitioner 08/01/22 Marlee Dsouza, SHELLY, PMHNP- [address] [place] [phone] Psychiatric Provider [facility] 12/07/20 3 documented as of this encounter Additional Source Comments PLEASE NOTE: Replies to this message will not be received.[facility] and [facility]
[2024-07-15 16:27] LABS: Lyme ELISA Reflex 0.21 IV (<=0.90)
[2024-07-16 20:42] LABS: Anaplasma phagocytophilum PCR Not Detected; Ehrlichia chaffeensis by PCR Not Detected; Ehrlichia ewingii/canis by PCR Not Detected; Ehrlichia muris-like by PCR Not Detected
== END 2024-07-13 22:13 | disposition home or self-care (01) ==
LOC: ED 22:09
PROVIDERS: Emergency Provider Family Medicine
DX: R50.9 Fever, unspecified (principal)
CPT/HCPCS: 36415; 71046; 80048; 85025; 86618; 87040; 87468; 87484; 87637; 87798; 99283; 99284; A9270